=== PATIENT | female | born 1945 | race Caucasian/White ===

== ENCOUNTER → 2018-12-29 08:12 | Outpatient (CLI) | payer MEDICARE, BC ==
[2012-01-13 17:38] VITALS: BMI 22.3
== END | disposition home or self-care (01) ==
LOC: D.CT 08:12
DX: I71.4 Abdominal aortic aneurysm, without rupture (principal)

== ENCOUNTER 2019-01-21 00:42 | Emergency (ER) | payer MEDICARE, BC ==
[~2019-01-21] VITALS: Ht 157.5 cm; Wt 66.4 kg
[2019-01-21 00:50] VITALS: Ht 157.5 cm; Wt 66.4 kg
[2019-01-21] MEDS ORDERED: ATIVAN0.5 MG PO (00:53)
[2019-01-21] MEDS ORDERED: MACROBID100 MG PO (00:53)
[2019-01-21] MEDS ORDERED: CELEXA10 MG PO (00:53)
[2019-01-21] MEDS ORDERED: SOMA350 MG PO (00:54)
[2019-01-21] MEDS ORDERED: PHENAZOPYRIDIN100 MG PO (00:54)
[2019-01-21] MEDS ORDERED: RANITIDINE HCL150 M1 PO (00:54)
[2019-01-21 01:52] LABS: APTT 28.9 SECONDS (22.8-39.4); INR 1.05 (0.85-1.17); PROTIME 13.2 SECONDS (11.6-15.0)
[2019-01-21 02:02] LABS: ALBUMIN 3.5 g/dL (3.4-5.0); ALKALINE PHOSPHATASE 142 U/L (46-116); ALT (SGPT) 38 U/L (10-68); CALC OSMOLALITY 286 mosm/kg (275-300); CALCIUM 8.2 mg/dL (8.5-10.1); CARBON DIOXIDE 22.8 mmol/L (21.0-32.0); CHLORIDE - SERUM 106 mmol/L (98-107); POTASSIUM - SERUM 3.3 mmol/L (3.5-5.1); SODIUM 143 mmol/L (136-145); UREA NITROGEN 13 mg/dL (7-18); eGFR NON AFRICAN AMERICAN 58 mL/min (90-120)
[2019-01-21 02:04] LABS: GLUCOSE 140 mg/dL (74-106)
[2019-01-21 02:08] LABS: BASOPHILS 0 % (0-2); EOSINOPHILS 0.6 % (0-7); HEMATOCRIT 35.1 % (36.0-48.0); HEMOGLOBIN 11.9 g/dL (12-16); IMMATURE GRANULOCYTES 0.1 % (0-5); LYMPHOCYTES 5.5 % (15-50); MCH 30.1 pg (26.0-34.0); MCHC 33.9 g/dL (31.0-37.0); MCV 88.6 fL (80.0-100.0); MEAN PLATELET VOLUME 9.7 fL (7.4-10.4); MONOCYTES 5.7 % (2-11); NEUTROPHILS 88.1 % (40-80); RBC 3.96 10x6/uL (4.00-5.40); RDW 13.3 % (11.5-14.5); WBC 8.4 10x3/uL (4.8-10.8)
[2019-01-21 02:09] LABS: CKMB 0.7 U/L (0.0-3.6); CREATINE KINASE 52 UL (21-215); MAGNESIUM - SERUM 1.7 mg/dL (1.8-2.4)
[2019-01-21 02:10] LABS: TROPONIN-I < 0.017 ng/mL (0.000-0.060)
[2019-01-21 02:33] LABS: PLATELET COUNT 214 10x3/uL (130-400)
[2019-01-21 03:31] VITALS: BP 100/50
== END 2019-01-21 03:15 | disposition home or self-care (01) ==
LOC: D.ER 00:42
PROVIDERS: Family Medicine
DX: R07.89 Other chest pain (principal)

== ENCOUNTER → 2019-02-09 10:19 | Outpatient (CLI) | payer MEDICARE, BC ==
[2019-01-21 00:50] VITALS: BMI 26.7
--- NOTE | ~2019-02-09 | ST ---
PATIENT:CAT ROSARIO MEDICAL RECORD: [id number] SEX: F LOCATION:[facility] ORDER #: ADMISSION DATE: 02/09/19 AGE OF PATIENT: 74 REFERRING PHYSICIAN: INTERPRETING PHYSICIAN: NICK WEAVER MD DATE OF SERVICE: 02/09/2019 PROCEDURE: Nuclear stress test. INDICATION: Angina and coronary artery disease. PROCEDURE IN DETAIL: The patient was exercised on standard Lexiscan protocol with 33 mCi of sestamibi injected at peak stress, 11 mCi were used previously for rest images. FINDINGS: Gated SPECT reveals preserved ejection fraction at 66% with good wall motioning and thickening and brightening throughout all segments. SPECT imaging Cardiolite was used as myocardial perfusion agent. There is reversibility anteriorly, this includes the basal, mid apical, and anterior segments. The degree of reversibility is mild to moderate. The amount of myocardium involved is moderate. OVERALL IMPRESSION: 1. This is an abnormal nuclear stress test. Reversible ischemia anteriorly. 2. Gated SPECT reveals preserved ejection fraction greater than 60% in this patient with ongoing symptomatology. The current scan does suggest the presence of hemodynamically significant coronary artery disease. We will proceed with coronary angiography as followup study. TRANSINT:[id number] Voice Confirmation ID: [id number] DOCUMENT ID: [id number] NICK WEAVER MD CC: [id number] DICTATION DATE: 02/10/19 1217 UTILITY SPECIALIST: 02/11/19 0356 DEP CLI 02/09/[address] [address]
[~2019-02-09 10:19] MED LIST: ATIVAN0.5 MG PO; CELEXA10 MG PO; MACROBID100 MG PO; PHENAZOPYRIDIN100 MG PO; RANITIDINE HCL150 M1 PO; SOMA350 MG PO
== END | disposition home or self-care (01) ==
LOC: D.HCCARDIO 10:19
PROVIDERS: ATTEND Internal Medicine Interventional Cardiology
DX: I25.119 Atherosclerotic heart disease of native coronary artery with unspecified angina pectoris (principal)

== ENCOUNTER 2019-02-22 11:55 | Outpatient (CLI) | payer MEDICARE, BC ==
[~2019-02-22] VITALS: Ht 157.5 cm; Wt 59.1 kg
--- NOTE | ~2019-02-22 | HEMODYNAMI ---
PATIENT:CAT ROSARIO MEDICAL RECORD: [id number] : 45 LOCATION:[facility] ADMISSION DATE: 02/22/19 Generatedon:02/22/201914:24 Patient name: CAT ROSARIO Patient #: [id number] SSN: : Date of study: 02/22/2019 Page: Of Hemodynamic Procedure Report Patient Data Patient Demographics Procedure consent was obtained First Name: CAT Gender: Female Last Name: MARLENE : 1945 [facility] Initial: LARA Age: 74 year(s) Patient #: [id number] Race: Unknown Additional ID: [id number] Contact details [address]: [address] [place] [address] State: [place] City: [place] Zip code: [address] Past Medical History Allergies Allergen Reaction Date Comments Reported Other allergy 02/22/2019 CODEINE, IODINE, MACROBID, PCN Admission Admission Data Admission Date: 02/22/2019 Admission Time: 11:55 Height (in.): 63 BSA: 1.59 (m2) Height (cm.): 160.02 BMI: 22.32 (kg/m2) Weight (lbs.): 126 Weight (kg.): 57.15 Lab Results Lab Result Date: 02/22/2019 Lab Result Time: 0:00 Biochemistry Name Units Result Min Max BUN mg/dl 15 --(--*-)-- 7 18 Creatinine mg/dl 0.7 --(*---)-- 0.6 1.3 CBC Name Units Result Min Max Hematocrit % 36.9 *-(----)-- 42 54 Hemoglobin g/dl 12.8 -*(----)-- 13.5 17.5 Procedure Procedure Types Cath Procedure Diagnostic Procedure LHC LHC w/Coronaries Sedation Charges Moderate Sedation up to 30 minutes Procedure Description Procedure Date Procedure Date: 02/22/2019 Procedure Start Time: 14:01 Procedure End Time: 14:22 Procedure Staff Name Function Gui Lawrence MD Performing Physician Ruthie Vidal RT Monitor Zeyad Lewis RT Scrub Kenya Harrison RN Nurse Procedure Data Cath Procedure Fluoroscopy Diagnostic fluoroscopy Total fluoroscopy Time: 1.9 time: 1.9 min min Diagnostic fluoroscopy Total fluoroscopy dose: 335 dose: 335 mGy mGy Contrast Material Contrast Material Type Amount (ml) Isovue 300 105 Entry Location Entry Primary Successful Side Size Upsize Upsize Entry Closure Succes sful Closure Location (Fr) 1 (Fr) 2 (Fr) Remarks Device Remarks Femoral Right 5 Fr Exoseal artery Estimated blood loss: 5 ml Diagnostic catheters Device Type Used For End Catheter Placement MULTIPACK JL 4.0 5Fr Procedure catheter MULTIPACK 3DRC 5Fr Procedure catheter MULTIPACK Pigtail 5 Fr Procedure catheter Procedure Complications No complications Procedure Medications Medication Administration Route Dosage 0.9% NaCl I.V. 100 ml/hr Oxygen etCO2 Nasal cannula 2 l/min Lidocaine 2% added to field 20 Heparin Flush Bag added to field 2 bags (1000units/500ml NS) Radial Cocktail added to field 1 syringe (Verapomil 2mg/Nitro 400mcg/Heparin 1500units) Versed I.V. 2 mg Fentanyl I.V. 50 mcg Versed I.V. 2 mg Fentanyl I.V. 50 mcg Hemodynamics Rest BSA: 1.59 (m2) HGB: 12.8 (g/dl) O2 Consumption: Estimated: 146.99 (ml/min) O2 Co nsumption indexed: Estimated:92.45 (ml/min/m) Heart Rate: 73 (bpm) Pressure Samples Time Site Value (mmHg) Purpose Heart Use Rate(bpm) 14:07 LV 162/-2,21 EDP 74 14:09 AO 153/73(108) Pullback 79 14:09 LV 155/2,23 Pullback 79 Gradients Valve Time Site 1 Site 2 Mean SEP/DFP Peak To Heart Use (mmHg) (sec/min) Peak Rate (mmHg) (bpm) Aortic 14:09 LV AO 6 16 2 79 155/2,23 153/73(108) Calculations Valve P-P Mean Valve Index Valve Source Name Gradient Area Flow (cm2) Aortic 2 6 2 6 Snapshots Pre Cath Intra NCS Post Cath Vital Signs Time Heart Resp SPO2 etCO2 NIBP (mmHg) Rhythm Pain Sedation Rate (ipm) (%) (mmHg) Status Level (bpm) 13:45:43 69 12 100 34.1 173/80(113) NSR 0 (11) 10(A) , No pain 13:50:03 64 11 97 34.8 148/77(117) NSR 0 (11) 10(A) , No pain 13:54:24 69 12 98 34.8 149/74(125) NSR 0 (11) 10(A) , No pain 13:58:42 66 13 97 12.6 134/67(102) NSR 0 (11) 9(A) , No pain 14:02:56 65 16 97 40.7 140/72(95) NSR 0 (11) 9(A) , No pain 14:07:12 75 15 97 39.2 144/73(116) NSR 0 (11) 9(A) , No pain 14:11:30 75 14 98 37.8 134/73(103) NSR 0 (11) 9(A) , No pain 14:15:44 66 14 98 31.1 133/70(110) NSR 0 (11) 9(A) , No pain 14:19:56 75 10 98 22.9 144/77(120) NSR 0 (11) 10(A) , No pain Medications Time Medication Route Dose Verified Delivered Reason Notes E ffectiveness by by 13:46:30 0.9% NaCl I.V. 100 Gui Kenya used for ml/hr Howard Harrison costume director 13:46:37 Oxygen etCO2 2 l/min Gui Kenya used for Nasal Howard Harrison procedure cannula RN 13:46:42 Lidocaine 2% added 20ml Gui Gui for local to vial Howard Lawrence MD anesthetic field 13:46:49 Heparin Flush added 2 bags Gui Gui used for Bag to Howard Lawrence MD procedure (1000units/500ml field NS) 13:46:55 Radial Cocktail added 1 Gui Gui used for (Verapomil to syringe Howard Lawrence MD procedure 2mg/Nitro field 400mcg/Heparin 1500units) 13:48:50 Versed I.V. 2 mg Gui Kenya for Howard Harrison sedation RN 13:48:57 Fentanyl I.V. 50 mcg Gui Kenya for Howard Harriosn sedation RN 13:54:47 Versed I.V. 2 mg Gui Kenya for Howard Harrison sedation RN 13:54:51 Fentanyl I.V. 50 mcg Gui Kenya for Howard Harrison sedation home energy consultant supervisor Log Time Note 13:25:50 Zeyad Lewis RT(R) sent for patient. Start room use. 13:30:51 Diagnostic Cath status Elective 13:30:52 Signed procedure consent form obtained from patient. 13:30:53 Time tracking: Regular hours (M-F 7:00 - 5:00) 13:30:56 Plan of Care:Hemodynamics will remain stable., Cardiac rhythm will remain stable., Comfort level will be maintained., Respiratory function will remain adequate., Patient/ family verbilizes understanding of procedure., Procedure tolerated without complication., Recovers from procedure without complications.. 13:32:04 H&P Date Dictated: 02/02/2019 Within 30 days and on chart., H&P Addendum completed by physician on day of procedure. (MUST COMPLETE FOR ALL OUTPATIENTS). 13:32:32 Patient allergic to Other allergyCODEINE, IODINE, MACROBID, PCN 13:43:38 Patient received from Pre/Post Procedure Room to CCL 1 Alert and oriented. Tansferred to table in Supine position. 13:43:39 Warm blankets applied, and omar hugger turned on for patient comfort. 13:43:40 Correct patient and procedure confirmed by team. 13:43:41 ECG and BP/O2 sat monitors applied to patient. 13:43:41 Vital chart was started 13:43:42 Baseline sample Acquired. 13:43:47 Rhythm: sinus rhythm 13:44:54 Full Disclosure recording started 13:44:54 Pre-procedure instructions explained to patient. 13:44:55 Pre-op teaching completed and patient verbalized understanding. 13:44:57 Family in patients room. 13:44:58 Patient NPO since Midnight. 13:45:01 Is the patient allergic to Iodine/contrast media? Yes. 13:45:02 Was the patient premedicated? Yes 13:45:04 Is patient on blood thinner?No 13:45:05 Patient diabetic? No. 13:45:09 Previous problem with sedation/anesthesia? No ? 13:45:12 Snore? Yes 13:45:13 Sleep apnea? No 13:46:30 0.9% NaCl 100 ml/hr I.V. was administered by Kenya Harrison RN; used for procedure; 13:46:37 Oxygen 2 l/min etCO2 Nasal cannula was administered by Kenya Harrison RN; used for procedure; 13:46:42 Lidocaine 2% 20ml vial added to field was administered by Gui Lawrence MD; for local anesthetic; 13:46:49 Heparin Flush Bag (1000units/500ml NS) 2 bags added to field was administered by Gui Lawrence MD; used for procedure; 13:46:55 Radial Cocktail (Verapomil 2mg/Nitro 400mcg/Heparin 1500units) 1 syringe added to field was administered by Gui Lawrence MD; used for procedure; 13:46:59 Sleep apnea? No 13:47:01 Deviated septum? No 13:47:02 Opens mouth fully? Yes 13:47:02 Sticks out tongue? Yes 13:47:04 Airway obstruction? No ? 13:47:08 Dentures? Yes IN TIGHT 13:47:11 Pre procedure: right dorsailis pedis pulse 2+ Normal; easily identifiable; not easily obliterated 13:47:29 Patient pain scale 0/10 ?. 13:47:35 IV patent on arrival in left hand with 0.9% NaCl at [facility]. 13:48:08 Lab Result : BUN 15 mg/dl 13:48:08 Lab Result : Creatinine 0.7 mg/dl 13:48:08 Lab Result : Hemoglobin 12.8 g/dl 13:48:08 Lab Result : Hematocrit 36.9 % 13:48:11 Lab results completed and on chart. 13:48:14 Right groin area was prepped with chlora-prep and draped in sterile fashion 13:48:15 Alarms reviewed by R. N. 13:48:18 Sharps counted by scrub and verified by R.N. 13:48:20 --------ALL STOP TIME OUT------ 13:48:20 Final Timeout: patient, procedure, and site verified with staff and physician. All members of the team are in agreement. 13:48:22 Right groin site verified by team. 13:48:24 Maximum allowable Isovue 300 dose 300ml. Physician notified. (300ml for normal creatinines. For patients with creatinine of 1.7 or higher multiply weight(kg) x 5 divided by creatinine.) 13:48:29 Fire Safety Assessment: A--An alcohol-based skin anteseptic being used preoperatively., C--Open oxygen or nitrous oxide is being used., D--An ESU, laser, or fiber-optic light is being used. 13:48:34 Sedation plan: IV Moderate Sedation Medication:Versed, Fentanyl 13:48:50 Versed 2 mg I.V. was administered by Kenya Harrison RN; for sedation; 13:48:57 Fentanyl 50 mcg I.V. was administered by Kenya Harrison RN; for sedation; 13:51:33 Use device set Femoral Dx 13:51:35 ACIST Syringe (86206) opened to sterile field. 13:51:36 Bag Decanter (2002S) opened to sterile field. 13:51:36 ACIST Hand Control (00842) opened to sterile field. 13:51:37 ACIST Manifold (76879) opened to sterile field. 13:51:39 Tegaderm 4 x 4 (1626W) opened to sterile field. 13:51:46 Medline Cath Pack ([id number]) opened to sterile field. 13:51:47 DIAGNOSTIC WIRE .035 260cm J wire (039593) opened to sterile field. 13:51:49 DIAGNOSTIC Multipack 5Fr catheter set (JY3323) opened to sterile field. 13:51:50 SHEATH 5FR Orient (ZIR268) opened to sterile field. 13:52:19 Patient Height : 63 inches 13:52:22 Patient Weight : 126 lbs 13:54:47 Versed 2 mg I.V. was administered by Kenya Harrison RN; for sedation; 13:54:51 Fentanyl 50 mcg I.V. was administered by Kenya Harrison RN; for sedation; 13:56:16 Zero performed for pressure channel P1 14:00:38 Procedure started. 14:01:26 Local anesthetic to right femoral artery with Lidocaine 2% by Gui Lawrence MD.INITIAL ACCESS ONLY 14:02:17 A 5 Fr sheath was inserted into the Right Femoral artery 14:02:26 Zero performed for pressure channel P1 14:02:34 Zero performed for pressure channel P1 14:02:58 A MULTIPACK JL 4.0 5Fr catheter was advanced over the wire and used for Procedure. 14:04:20 LCA angiography performed. 14:04:25 Catheter exchanged over wire. 14:05:11 A MULTIPACK 3DRC 5Fr catheter was advanced over the wire and used for Procedure. 14:06:08 RCA angiography performed. 14:06:10 Catheter exchanged over wire. 14:06:56 A MULTIPACK Pigtail 5 Fr catheter was advanced over the wire and used for Procedure. 14:07:18 LV gram done using GUTIERREZ 14::28 Injector settings: Ml/sec: 10, Volume: 20, 14:07:46 LV hemodynamics recorded. 14:08:04 EF : 55 % 14:10:07 Aortic Root visualized 14:19:35 Catheter removed. 14:19:39 EXOSEAL 5Fr (EX500) opened to sterile field. 14:20:13 Sheath removed intact; hemostasis achieved with Exoseal to the Right Femoral artery. 14:20:32 Procedure ended.(Physican Out) 14:20:56 Fluoroscopy time 01.90 minutes. 14:21:00 Fluoroscopy dose: 335 mGy 14:21:00 Flurop Dose total: 335 14:21:05 Contrast amount:Isovue 300 105ml. 14:21:07 Sharps counted by scrub and verified by R.N. 14:21:11 Post-op/insertion site Right Femoral artery dressed using a 4 x 4 and Tegaderm. 14:21:13 Post-procedure physical assessment completed. ASA score P 2 - A patient with mild systemic disease as per Gui Lawrence MD. 14:21:17 Post procedure rhythm: sinus rhythm 14:21:20 Estimated blood loss: 5 ml 14:21:21 Post procedure instruction explained to patient.Patient verbalizes understanding. 14:21:22 Patient needs reinforcement of post procedure teaching. 14:22:16 Procedure type changed to Cath procedure, Diagnostic procedure, LHC, LHC w/Coronaries, Sedation Charges, Moderate Sedation up to 30 minutes 14:22:36 Procedure and supply charges have been captured, reviewed, submitted and are correct. 14:22:39 Procedure Complication : No complications 14:22:41 Vital chart was stopped 14:22:41 See physician's report for complete and final results. 14:22:43 Report given to Pre/Post Procedure Room. 14::46 Patient transfered to Pre/Post Procedure Room with Bed. 14:22:48 Procedure ended. 14:22:48 Full Disclosure recording stopped 14:22:51 End room use (Document Last) Device Usage Item Name Manufacture Quantity Catalog Hospital Part Current Minimal L ot# / Number Charge Number Stock Stock Serial# Code ACANDRES Acist 1 13944 330824 732263 800620 20 Syringe Medical (12306) Systems Inc Bag Microtek 1 2001S 937220 31615 885471 5 Decanter Medical Inc. (2001S) ACIST Hand Acist 1 82533 271372 476173 519137 5 Control Medical (85421) Systems Inc ACIST Acist 1 31501 229590 505296 068548 5 Manifold Medical (06269) Systems Inc Tegaderm 4 3M 1 1626W 744904 923708 291115 5 x 4 (1626W) Medline Medline 1 [id number] 663484 52375 928720 5 Cath Pack ([id number]) DIAGNOSTIC [facility] [place] 1 212779 759238 718073 132923 30 WIRE .035 260cm J wire (109256) DIAGNOSTIC Cardinal 1 PV3059 740366 48046 958165 30 Multipack Health 5Fr catheter set (NA6909) SHEATH 5FR Terumo 1 CFY705 455267 678120 533980 5 Orient (SLW885) MULTIPACK Cardinal 1 682506 5 JL 4.0 5Fr Health catheter MULTIPACK Cardinal 1 696042 5 3DRC 5Fr Health catheter MULTIPACK Cardinal 1 648298 5 Pigtail 5 Health Fr catheter EXOSEAL 5Fr Cardinal 1 EX500 383076 572465 263646 10 (EX500) Health Signature Audit [place] Stage Time Signature Unsigned Intra-Procedure 02/22/2019 Ruthie Vidal 2:24:20 PM RT(R) Signatures Monitor : Ruthie Vidal Signature : RT Date : Time : [place] [address]
[2019-02-22 12:46] VITALS: BP 146/64; BMI 23.8
[2019-02-22 12:50] LABS: BASOPHILS 0 % (0-2); EOSINOPHILS 0 % (0-7); HEMATOCRIT 36.9 % (36.0-48.0); HEMOGLOBIN 12.8 g/dL (12-16); IMMATURE GRANULOCYTES 0.2 % (0-5); LYMPHOCYTES 10.7 % (15-50); MCH 30.3 pg (26.0-34.0); MCHC 34.7 g/dL (31.0-37.0); MCV 87.2 fL (80.0-100.0); MEAN PLATELET VOLUME 9.6 fL (7.4-10.4); MONOCYTES 0.6 % (2-11); NEUTROPHILS 88.5 % (40-80); PLATELET COUNT 210 10x3/uL (130-400); RBC 4.23 10x6/uL (4.00-5.40); RDW 13.5 % (11.5-14.5); WBC 6.3 10x3/uL (4.8-10.8)
[2019-02-22 12:58] LABS: CALC OSMOLALITY 280 mosm/kg (275-300); CALCIUM 9.1 mg/dL (8.5-10.1); CARBON DIOXIDE 25.2 mmol/L (21.0-32.0); CHLORIDE - SERUM 103 mmol/L (98-107); CREATININE - SERUM 0.7 mg/dL (0.6-1.3); GLUCOSE 128 mg/dL (74-106); POTASSIUM - SERUM 3.6 mmol/L (3.5-5.1); SODIUM 139 mmol/L (136-145); UREA NITROGEN 15 mg/dL (7-18); eGFR NON AFRICAN AMERICAN 87 mL/min (90-120)
--- NOTE | 2019-02-22 14:35 | NUR ---
PT ARRIVED BY BED. PLACED ON MONITORS. FAMILY AT BEDSIDE.
--- NOTE | 2019-02-22 14:50 | NUR ---
DR. DAUGHERTY AT BEDSIDE. UPDATED PT NO PLAN OF CARE. CALLED AND SPOKE WITH JERMAIN AT DR. MELENDEZ'S OFFICE REGARDING CONSULT. THEY WILL ROUND AND SPEAK WITH PT AND PT'S FAMILY.
--- NOTE | 2019-02-22 15:30 | NUR ---
HEAD OF BED INC TO 30 DEGREES. RIGHT GROIN DRESSING C/D/I. NO S/S OF HEMATOMA NOTED. VSS. FAMILY AT BEDSIDE. PT SET UP WITH SANDWICH TRAY AND DRINK. NO OTHER NEEDS AT THIS TIME. PT HAS BARIHUGGER BLANKET ON FOR COMFORT.
--- NOTE | 2019-02-22 16:00 | NUR ---
RIGHT GROIN DRESSING C/D/I. NO S/S OF HEMATOMA NOTED. VSS.
--- NOTE | 2019-02-22 16:21 | NUR ---
DR. MELENDEZ AT BEDSIDE. SPEAKING WITH PT AND PT'S FAMILY REGARDING PLAN OF CARE.
[2019-02-22] MEDS ORDERED: BAYER CHEWABLE81 MG PO (16:24)
[2019-02-22] MEDS ORDERED: LOPRESSOR25 MG PO (16:24)
[2019-02-22 16:36] VITALS: Ht 157.5 cm; Wt 59.1 kg
[2019-02-22] MEDS ORDERED: LIPITOR10 MG PO (16:36)
--- NOTE | 2019-02-22 16:45 | NUR ---
DISCUSSED DISCHARGE INSTRUCTIONS WITH PT. SHE VOICED UNDERSTANDING. MEDICATIONS CALLED IN TO [facility] PER JERMAIN DELUCA RN. PT AMBULATED TO RESTROOM. VOIDED WITHOUT DIFFICULTY. STEADY GAIT NOTED.
--- NOTE | 2019-02-22 16:50 | NUR ---
PT TAKEN TO VEHICLE BY WHEELCHAIR. NO S/S OF DISTRESS NOTED. ALL PAPERWORK AND DISCHARGE INSTRUCTIONS IN HAND.
== END 2019-02-22 16:30 | disposition home or self-care (01) ==
LOC: D.CATH 11:55
PROVIDERS: ATTEND Internal Medicine Cardiovascular Disease
DX: I25.119 Atherosclerotic heart disease of native coronary artery with unspecified angina pectoris (principal); Z01.812 Encounter for preprocedural laboratory examination

== ENCOUNTER 2019-02-27 08:00 | Inpatient (IN) | payer MEDICARE, BC ==
[~2019-02-27 08:00] MED LIST changes: +BAYER CHEWABLE81 MG PO; +LIPITOR10 MG PO; +LOPRESSOR25 MG PO
[2019-02-27 13:06] LABS: BASOPHILS 0.1 % (0-2); EOSINOPHILS 0.4 % (0-7); HEMATOCRIT 38.3 % (36.0-48.0); HEMOGLOBIN 13.3 g/dL (12-16); IMMATURE GRANULOCYTES 0.3 % (0-5); LYMPHOCYTES 32.2 % (15-50); MCH 30.4 pg (26.0-34.0); MCHC 34.7 g/dL (31.0-37.0); MCV 87.6 fL (80.0-100.0); MEAN PLATELET VOLUME 9.6 fL (7.4-10.4); MONOCYTES 6.8 % (2-11); NEUTROPHILS 60.2 % (40-80); PLATELET COUNT 221 10x3/uL (130-400); RBC 4.37 10x6/uL (4.00-5.40); RDW 13.5 % (11.5-14.5); WBC 7.5 10x3/uL (4.8-10.8)
[2019-02-27 13:17] LABS: APPEARANCE CLEAR (CLEAR); BILIRUBIN NEGATIVE (NEGATIVE); COLOR YELLOW (YELLOW); GLUCOSE NEGATIVE (NEGATIVE); KETONE NEGATIVE (NEGATIVE); NITRITE NEGATIVE (NEGATIVE); PROTEIN NEGATIVE (NEGATIVE); UROBILINOGEN NORMAL (NORMAL)
[2019-02-27 13:18] LABS: BACTERIA MODERATE /hpf (NONE SEEN); EPITHELIAL CELLS 0-5 /hpf (0-5)
[2019-02-27 13:19] LABS: GRANULAR CAST RARE /lpf (NONE SEEN)
[2019-02-27 13:21] LABS: APTT 31.8 SECONDS (22.8-39.4); INR 1.06 (0.85-1.17); PROTIME 13.3 SECONDS (11.6-15.0)
[2019-02-27 13:51] LABS: ALBUMIN 3.8 g/dL (3.4-5.0); ALKALINE PHOSPHATASE 130 U/L (46-116); ALT (SGPT) 18 U/L (10-68); BILIRUBIN - TOTAL 0.53 mg/dL (0.2-1.3); CALC OSMOLALITY 281 mosm/kg (275-300); CALCIUM 8.8 mg/dL (8.5-10.1); CARBON DIOXIDE 30.9 mmol/L (21.0-32.0); CHLORIDE - SERUM 103 mmol/L (98-107); CHOLESTEROL, TOTAL 197 mg/dL (0-200); CREATININE - SERUM 0.7 mg/dL (0.6-1.3); GLUCOSE 91 mg/dL (74-106); PHOSPHOROUS 3.6 mg/dL (2.5-4.9); POTASSIUM - SERUM 3.8 mmol/L (3.5-5.1); PROTEIN - SERUM 7.3 g/dL (6.4-8.2); SODIUM 141 mmol/L (136-145); T4 THYROXIN - FREE 0.88 ng/dL (0.76-1.46); THYROID STIMULATING HORMONE 1.95 uIU/mL (0.36-3.74); UREA NITROGEN 14 mg/dL (7-18); URIC ACID 4.1 mg/dL (2.6-7.2); eGFR NON AFRICAN AMERICAN 87 mL/min (90-120)
[2019-03-02] VITALS (45 sets, daily range): BP systolic 93–138; BP diastolic 47–70; BMI 23.8; BMI 24.4
--- NOTE | 2019-03-02 14:44 | NUR ---
PT ARRIVED TO ROOM APPROX 1335 SEDATED FROM SURGERY ETT 8.0 21 AT THE LIP PLACED ON VENT BY RT, R IJ CVL DRESSING CDI WITH [id number]/HR ELAN 0.2MCG/KG/MIN OR 3.5ML/HR, ZINACEF INITATED 11.4ML/HR, AMIODARONE 1MG/MIN FOR 6 HOURS OR 10ML/HR, DOPAMINE 2MCG/KG/MIN OR 4.4ML/HR, KCL TREATED WITH 20MEQ AFTER ABG PER DR MELENDEZ, L AC PIV, R RADIAL A LINE ZEROED, GOOD WAVEFORM, WRIST PROTECTOR IN PLACE, MIDSTERNAL DRESSING CDI, SUBSTERNAL CTX3 WITH 2 Y'D TOGETHER NO AIR LEAK 20CM SUCTION BLOODY DRAINAGE, SUBSTERNAL JACQUELINE COMPRESSED WITH BLOODY DRAINAGE, CRITICORE DRAINING YELLOW URINE, RLE HARVEST SITES CDI WITH COBAN FROM GROIN TO ANKLE, FAMILY UPDATED BY DR MELENDEZ AND IN ROOM, SECURITY CODE SET UP, WILL CONTINUE TO MONITOR 1:1
--- NOTE | 2019-03-02 16:57 | NUR ---
ABGS CALLED TO DR MELENDEZ, BASE EXCESS, CALCIUM AND POTASSIUM TREATED PER PROTOCOL ORDERS, KCL TREATED FROM HANGING BAG
--- NOTE | 2019-03-02 17:27 | NUR ---
ABG REPEATED PER DR MELENDEZ AND NOTIFIED HIM OF RESULTS
--- NOTE | 2019-03-02 17:33 | NUR ---
ORDERS FROM DR MELENDEZ TO CHANGE VENT RATE TO 14 AND CHECK ABG IN ONE HOUR IF AWAKE
--- NOTE | 2019-03-02 18:35 | NUR ---
UPDATED DR MELENDEZ ON PTS VS, OUTPUTS, ETC AND THAT PT IS STILL EASILY AWAKENED AND FOLLOWS COMMANDS BUT CONTINUES TO RIDE THE VENTILATOR RATE OF 14 AND IS NOT BREATHING OVER, WILL GET ABGS IN ANOTHER HOUR IF AWAKE, RT AWARE
--- NOTE | 2019-03-02 19:20 | NUR ---
REPORT REC'D AND CARE ASSUMED, REC'D PT ON VENT VIA 8.0 ETT TAPED AT 21CM LIPLINE, SEE FLOWSHEET FOR VENT SETTINGS, RIJDL DRSG CDI WITH MANNIFOLD TO 3 PRONG EXTENSION, PLASMALYTE @ 100CC/HR, DOPAMINE @ 2MCG/KG/MIN OR 4.4CC/HR, NEOSYNEPHRINE @ 0.2 MCG/KG/MIN OR 3.5CC/HR, AND CORDARONE @ 1MG/MIN OR 10CC/HR, INSULIN AND NITROGLYCERIN ON HOLD, LEFT A/C PIV PATENT WITH ZINACEF @ 11.4CC/HR, MIDSTERNAL DRSG CDI, RIGHT RADIAL BERNY LEVELED ZEROED AND FLUSHED WITH RETURN OF APPROPRIATE WAVEFORM, MEDISTINAL CT'S AND JACQUELINE DRAIN TO UPPER ABD, DRSG CDI, SANGUINOUS DRAINAGE PRESENT, CRITICORE MARKS PATENT DRAINING CLEAR YELLOW URINE, COBAN TO RIGHT LEG CDI, TIM AND SCD TO LEFT LEG, PPP, PT AWAKENS TO VERBAL STIMULI, SLOW TO FOLLOW COMMANDS THEN DRIFTS BACK TO SLEEP, BILAT SOFT WRIST RESTRAINTS INTACT, 1:[address].
--- NOTE | 2019-03-02 19:25 | NUR ---
RT AT BS FOR ABG, RESULT CALLED TO DR. MELENDEZ AND ORDERS REC'D TO ATTEMPT TO WEAN VENT TOLERATED.
--- NOTE | 2019-03-02 19:30 | NUR ---
RATE ON VENT DECREASED TO 10 PER RT
--- NOTE | 2019-03-02 20:00 | NUR ---
FAMILY AT BS TO SEE PT, UPDATE PROVIDED AND QUESTIONS ANSWERED, PT AWAKE WHILE FAMILY IN ROOM.
--- NOTE | 2019-03-02 21:13 | NUR ---
EVENING MEDS GIVEN ORDERED, PO MEDS HELD AT THIS TIME, PT REMAINS ON VENT, RESTING EYES CLOSED, RESP 13-15, BP STABLE, ATTEMPTING TO WEAN GTTS TOLERATED.
--- NOTE | 2019-03-02 22:00 | NUR ---
PT RESTING ON VENT, VSS, FSBS 173, WILL CONT TO MONITOR FOR CHANGES.
--- NOTE | 2019-03-02 22:20 | NUR ---
RATE DECREASED TO 8 PER RT, ORAL CARE PROVIDED AND LIP MOISTURIZER APPLIED, PT MORE AWAKE AT THIS TIME
--- NOTE | 2019-03-02 22:50 | NUR ---
PT PLACED ON CPAP PER RT. RESP RATE 20, O2 SAT 97%, BP STABLE, WILL MONITOR CLOSELY FOR CHANGES.
[2019-03-03] VITALS (65 sets, daily range): BP systolic 98–143; BP diastolic 42–76; BMI 25.6
--- NOTE | 2019-03-03 00:15 | NUR ---
PT EXTUBATED TO 4LITERS NC, ORAL CARE PROVIDED, BILAT SOFT WRIST RESTRAINTS REMOVED AND PT INSTRUCTED TO NOT PULL AT LINES OR TUBES, PT NODS HEAD IN UNDERSTANDING.
--- NOTE | 2019-03-03 00:30 | NUR ---
HEART PILLOW PROVIDED AND INSTRUCTIONS PROVIDED ON PROPER SPLINTING TECHNIQUES, PT DENIES NAUSEA, A FEW ICE CHIPS GIVEN AT THIS TIME.
--- NOTE | 2019-03-03 01:15 | NUR ---
PERCOCET 5 GIVEN PO FOR DISCOMFORT, PT REPOSITIONED IN BED FOR COMFORT, ICE CHIPS PROVIDED, WILL MONITOR CLOSELY FOR CHANGES.
--- NOTE | 2019-03-03 02:45 | NUR ---
SBP 140'S SUSTAINED, NITROGLYCERIN STARTED @ 2CC/HR OR 6.67MCG/MIN, WILL TITRATE TO KEEP SBP LESS THAN 140
--- NOTE | 2019-03-03 03:15 | NUR ---
REASSESSMENT COMPLETED, SIPS OF WATER PROVIDED ON REQUEST, PT DENIES NAUSEA, RATING PAIN "3" ON 0-10 PAIN SCALE, PT DENIES FURTHER NEEDS, WILL CONTINUE TO MONITOR FOR CHANGES.
--- NOTE | 2019-03-03 03:55 | NUR ---
PT ASSISTED X 2 TO DANGLE AT BS, TOLERATED MOVING WELL, BACK WASHED AND LINES STRAIGHTENED WHILE PT ON SIDE OF BED.
--- NOTE | 2019-03-03 04:10 | NUR ---
PT ASSISTED BACK IN BED AND REPOSITIONED UP FOR COMFORT, 50CC NOTED IN POSTERIOR CHEST TUBE, ICE WATER PROVIDED AND CALL LIGHT IN REACH.
--- NOTE | 2019-03-03 04:30 | NUR ---
RADIOLOGY @ BS FOR AM CXR.
--- NOTE | 2019-03-03 05:55 | NUR ---
AM LAB DRAWN AND SENT TO LAB
[2019-03-03 06:34] LABS: HEMATOCRIT 35.9 % (36.0-48.0); MCH 28.9 pg (26.0-34.0); MCHC 33.4 g/dL (31.0-37.0); MCV 86.5 fL (80.0-100.0); MEAN PLATELET VOLUME 9.9 fL (7.4-10.4); RBC 4.15 10x6/uL (4.00-5.40); RDW 16.3 % (11.5-14.5); WBC 14.8 10x3/uL (4.8-10.8)
[2019-03-03 06:40] LABS: ALBUMIN 2.7 g/dL (3.4-5.0); ANION GAP 13.7 mmol/L (8-16); BILIRUBIN - TOTAL 0.6 mg/dL (0.2-1.3); CALCIUM 7.6 mg/dL (8.5-10.1); CARBON DIOXIDE 27.5 mmol/L (21.0-32.0); POTASSIUM - SERUM 4.2 mmol/L (3.5-5.1); PROTEIN - SERUM 5.4 g/dL (6.4-8.2)
--- NOTE | 2019-03-03 07:30 | NUR ---
SHIFT REPORT RECEIVED. TRANSFERRED PT TO CHAIR. RATES PAIN 8/10 AFTER TRANSFERR. ON 2L O2 VIA NC. MIDSTERNAL DRESSING CDI. SUBSTERNAL DRESSING WITH CHESTUBES X3. L JACQUELINE DRAIN. R-LEG HARVEST SITES WRAPPED IN COBAN DRESSING FROM GROIN TO ANKLE. R-RADIAL BERNY IN PLACE. RIJ WITH PLASMOLYTE AT 100, BURETROL AT 10ML/HR, AMIO AT 5ML/HR AND ZINACEF AT 11.4ML/HR. TIM HARRIS ON LLE. SHIFT ASSESSMENT COMPLETEED. CALL LIGHT IN REACH. WILL CONTINUE TO MONITOR.
--- NOTE | 2019-03-03 09:32 | NUR ---
RESTING IN CHAIR. AM MEDS GIVEN WITH WATER. REPORTED SOME NAUSEA AFTER EATING BREAKFAST. ZOFRAN GIVEN. WILL CONTINUE TO MONITOR.
--- NOTE | 2019-03-03 10:34 | NUR ---
SHARITA KUMAR PER DR. MELENDEZ.
--- NOTE | 2019-03-03 11:45 | NUR ---
PERCOCET GIVEN PER ORDERS.
--- NOTE | 2019-03-03 11:48 | NUR ---
MEAL TRAY DELIVERED TO ROOM. PT REFUSING TO EAT AT THIS TIME. STATES "I NORMALLY DON'T EAT BREAKFAST OR LUNCH AT HOME."
--- NOTE | 2019-03-03 12:56 | NUR ---
CT REMOVED BY DR. MELENDEZ. RESTING COMFORTABLY IN BED.
--- NOTE | 2019-03-03 13:00 | NUR ---
ORDERED 25MG LOPRESSOR PO NOW THEN BID PER DR. MELENDEZ.
--- NOTE | 2019-03-03 13:18 | NUR ---
PLASMOLYTE DC'D PER ORDERS.
--- NOTE | 2019-03-03 15:00 | NUR ---
RE-ASSESSMENT COMPLETED. RESTING COMFORTABLY IN BED. RIJ SALINE LOCKED. L-AC SALINE LOCKED. NO FEVER NOTED. VSS. WILL CONTINUE TO MONITOR.
--- NOTE | 2019-03-03 16:58 | NUR ---
MARKS CATHETER DC'D PER PROTOCOL. PT ASSISTED TO CHAIR. FAMILY MEMBER AT BEDSIDE. WILL CONTINUE TO MONITOR.
--- NOTE | 2019-03-03 17:28 | NUR ---
PT REPORTED PAIN 9/10 AFTER BEING TRANSFERRED TO CHAIR. PEROCET GIVEN PER ORDERS. ASSISTED BACK TO BED AT THIS TIME. WILL CONTINUE TO MONITOR.
--- NOTE | 2019-03-03 19:00 | NUR ---
REPORT [id number] AND ASSESSMENT COMPLETED. SEE FLWKELLYT FOR FULL DETAILS. VSS. PT REPORTS FEELING SOB. BREATHING TREATMENT GIVEN BY RT. PT PULLED UP IN BED. COUGH AND DEEP BREATHER PERFORMED. PT IS PULLING 250-500 ON IS. COUGHING WITH MINIMAL EFFORT. LAURA HEARD BILAT IN ALL LOBES. WILL MONITOR CLOSELY FOR COMPLICATIONS
[2019-03-04] VITALS (38 sets, daily range): BP systolic 83–120; BP diastolic 34–64
[2019-03-04 02:22] LABS: MAGNESIUM - SERUM 2.1 mg/dL (1.8-2.4); POTASSIUM - SERUM 4.6 mmol/L (3.5-5.1)
[2019-03-04 04:42] LABS: HEMATOCRIT 32.3 % (36.0-48.0); HEMOGLOBIN 10.6 g/dL (12-16); MCH 28.6 pg (26.0-34.0); MCHC 32.8 g/dL (31.0-37.0); MCV 87.3 fL (80.0-100.0); MEAN PLATELET VOLUME 9.4 fL (7.4-10.4); RBC 3.7 10x6/uL (4.00-5.40); RDW 15.7 % (11.5-14.5); WBC 19.7 10x3/uL (4.8-10.8)
[2019-03-04 04:55] LABS: ALBUMIN 2.5 g/dL (3.4-5.0); ANION GAP 9.1 mmol/L (8-16); BILIRUBIN - TOTAL 0.53 mg/dL (0.2-1.3); CALCIUM 7.5 mg/dL (8.5-10.1); CARBON DIOXIDE 32.3 mmol/L (21.0-32.0); CREATININE - SERUM 0.9 mg/dL (0.6-1.3); POTASSIUM - SERUM 4.4 mmol/L (3.5-5.1); PROTEIN - SERUM 5.5 g/dL (6.4-8.2)
--- NOTE | 2019-03-04 06:32 | NUR ---
PT RESTING IN BED AT THIS TIME. VSS. CURRENTLY IN FIB. AWARE. RATE 95 AT THIS TIME. NOTIFIED OF PT PAIN MED CONCERNS
--- NOTE | 2019-03-04 09:51 | NUR ---
0750-ASSISTED PT TO BEDSDIE CHAIR AMBULATED WELL WITH MINIMAL ASSISTANCE 0840-NOTIFIED DR MELENDEZ OF AFIB 84-NIBP 86/43-ORDER RECIEVED- 0850-NEOSYNEPHRINE GTT STARTED AT 0.025 MCG/KG/MIN-PT PLACED SELF IN BED-HOLD PO LOPRESSOR 0915-RHYTHM CHANGE TO SR 0945-DR MELENDEZ IN UNIT AND CURRENT SR UPDATE GIVEN
--- NOTE | 2019-03-04 14:36 | NUR ---
1100-AMBULATION HELD NIBP 92 SYS-STATED TIRED-TITRATED ELAN FOR SYS BP >100-NSR ON MONITOR 1400-TITRATED OFF NEOSYNEPHRINE PER PARAMETER-SALINE LOCKED IV, PERCOCET 5-1 TAB GIVEN- 1410-PT PLACED ON PORTABLE TELEMETRY-AMBULATED WITH PHYSICAL THERAPY 1435-STRESSED OUT OF BED UNTIL AFTER DINNER-REVIEWED WITH PT HOME RESTRICTION FOR LIFTING AT HOME -NO GREATER THAN 5LBS
--- NOTE | 2019-03-04 17:32 | NUR ---
NURSE APPROACHED BY PT DAUGHTER AND STATED HER MOTHER CANNOT USE PERCOCET BECAUSE CAUSES RASH-NOTED MULTIPLE DOSES GIVEN AND NO RASH NOTED-REQUESTED PT USE ONLY DEMEROL PO -STATES THAT'S WHAT SHE USES AT HOME-DR MELENDEZ NOTIFIED OF SAME -ORDER RECIEVED AND NOTED-DAUGHTER EXPRESSED CONCERN MOTHER IS CONFUSED-NOTED ORIENTED X2 EASILY WITH PROMPTING ON SPECIFIC DATE-AWARE YEAR AND MONTH-STATED MOTHER SAID REPUBLICAN AT NIGHT AND NOT SLEEPING
--- NOTE | 2019-03-04 22:27 | NUR ---
PT SHOWING POOR EFFORT WITH TCDB DESPITE ADEQUATE PAIN CONTROL
[2019-03-05] VITALS (24 sets, daily range): BP systolic 86–130; BP diastolic 42–69
--- NOTE | 2019-03-05 00:24 | NUR ---
PT HR HAS BEEN DECREASING INTO 40'S BEFORE QUICKLY RETURNING TO NORMAL. UP TO +/- 4 TO 6 BEATS AT A TIME. CONNECTED TO TPM. MONITORING CLOSELY FOR SUSTAINED LAURA
--- NOTE | 2019-03-05 03:44 | NUR ---
SOLITARIO KHAN COMPLETED
[2019-03-05 05:10] LABS: HEMATOCRIT 29.2 % (36.0-48.0); HEMOGLOBIN 9.5 g/dL (12-16); MCH 28.7 pg (26.0-34.0); MCHC 32.5 g/dL (31.0-37.0); MCV 88.2 fL (80.0-100.0); MEAN PLATELET VOLUME 9.3 fL (7.4-10.4); RBC 3.31 10x6/uL (4.00-5.40); RDW 15.5 % (11.5-14.5); WBC 15.4 10x3/uL (4.8-10.8)
[2019-03-05 05:20] LABS: ALBUMIN 2.3 g/dL (3.4-5.0); ALKALINE PHOSPHATASE 68 U/L (46-116); ALT (SGPT) 23 U/L (10-68); CALC OSMOLALITY 277 mosm/kg (275-300); CALCIUM 7.8 mg/dL (8.5-10.1); CARBON DIOXIDE 33.8 mmol/L (21.0-32.0); CHLORIDE - SERUM 103 mmol/L (98-107); CREATININE - SERUM 0.7 mg/dL (0.6-1.3); GLUCOSE 118 mg/dL (74-106); POTASSIUM - SERUM 4.3 mmol/L (3.5-5.1); PROTEIN - SERUM 5.5 g/dL (6.4-8.2); SODIUM 138 mmol/L (136-145); UREA NITROGEN 16 mg/dL (7-18); eGFR NON AFRICAN AMERICAN 87 mL/min (90-120)
--- NOTE | 2019-03-05 07:47 | NUR ---
0730-RECIEVED AWAKE AND ALERT-UP IN CHAIR-RESP RX IN PROGRESS-SR ON MONITOR- STRESSED TO PT TO LET NURSE KNOW IF PAIN MEDICINE NEEDED
--- NOTE | 2019-03-05 10:22 | NUR ---
AMBULATED WITH PHYSICAL THERAPY-FAMILY MEMBER AT PT SIDE-TOLERATED WELL-AGREED TO SIT UP IN CHAIR
--- NOTE | 2019-03-05 10:58 | NUR ---
R 22 WRIST GAUGE PLACED X1 ATTTEMPT-D/C'D R CORDIS WITH TIP INTACT-PER PROCEDURE AND POLICY
--- NOTE | 2019-03-05 17:32 | NUR ---
1630-PLACED PT TO PORT O2 AT 4L AND TELEMETRY-VIA WHEELCHAIR BROUGHT PT TO WAITING AREA AT HER REQUEST TO VISIT WITH SMALL GRANDCHILDREN 1700-RETURNED TO -ASSISTED TO BED-SR -NIBP 89/48-APPEARED IN BETTER SPIRITS 1730-ADDITIONAL FAMILY AT [facility]
--- NOTE | 2019-03-05 19:00 | NUR ---
REPORT RECEIVED, SHIFT ASSESSMENT COMPLETE PER FLOW SHEET, PT AAOx4, NSR ON CM, PT RESTING IN BED, DENIES PAIN OR NEEDS AT THIS TIME, OTHER VSS, WILL CONTINUE TO MONITOR
--- NOTE | 2019-03-05 19:03 | NUR ---
PT IN UNCONTROLLED A-FIB @120'S BPM, DAY SHIFT RN JOCELYNN NOTIFYING
[2019-03-05 19:44] LABS: MAGNESIUM - SERUM 2.2 mg/dL (1.8-2.4); POTASSIUM - SERUM 3.8 mmol/L (3.5-5.1)
--- NOTE | 2019-03-05 20:00 | NUR ---
DR MELENDEZ INFORMED OF PT STATUS. NEW ORDERS RECEIVED SEE JAN. WILL CONTINUE TO MONITOR.
--- NOTE | 2019-03-05 21:00 | NUR ---
PT CONVERTED TO NSR ON CM, VSS, WILL CONTINUE TO MONITOR
--- NOTE | 2019-03-05 23:00 | NUR ---
REASSESSMENT COMPLETE, PT RESTING IN BED, DENIES PAIN, SMALL CUP OF ICE WATER GIVEN PER REQUEST, REPOSITIONED IN BED FOR COMFORT, VSS, WILL CONTINUE TO MONITOR
[2019-03-06] VITALS (23 sets, daily range): BP systolic 85–112; BP diastolic 35–72
--- NOTE | 2019-03-06 00:30 | NUR ---
PT OOB TO BEDSIDE COMMODE, CLEAR YELLOW VOID, ASSISTED BACK TO BED, REPOSITIONED FOR COMFORT, SCD'S PLACED ON PT, VSS, NO FURTHER NEEDS AT THIS TIME
--- NOTE | 2019-03-06 03:00 | NUR ---
REASSESSMENT COMPLETE PER FLOW SHEET, NO ACUTE CHANGE FROM PRIOR ASSESSMENT, PT RESTING, WAKES EASY, AAOX4, DENIES NEEDS AT THIS TIME, VSS, WILL CONTINUE TO MONITOR
[2019-03-06 03:39] LABS: HEMATOCRIT 28.5 % (36.0-48.0); HEMOGLOBIN 9.5 g/dL (12-16); MCH 29.5 pg (26.0-34.0); MCHC 33.3 g/dL (31.0-37.0); MCV 88.5 fL (80.0-100.0); RBC 3.22 10x6/uL (4.00-5.40); RDW 14.4 % (11.5-14.5); WBC 12.7 10x3/uL (4.8-10.8)
[2019-03-06 04:00] LABS: ALBUMIN 2.2 g/dL (3.4-5.0); ANION GAP 7.3 mmol/L (8-16); BILIRUBIN - TOTAL 0.54 mg/dL (0.2-1.3); CALCIUM 7.6 mg/dL (8.5-10.1); CARBON DIOXIDE 31.7 mmol/L (21.0-32.0); CREATININE - SERUM 0.8 mg/dL (0.6-1.3); PROTEIN - SERUM 5.6 g/dL (6.4-8.2)
--- NOTE | 2019-03-06 05:00 | NUR ---
JACQUELINE DRAIN DRSG CHANGED, TIME AND DATED, TPM WIRES COILED, PT VSS, WILL CONTINUE TO ASSESS
--- NOTE | 2019-03-06 10:37 | NUR ---
PT UP IN CHAIR THIS AM. DR MELNEDEZ ROUNDS AND ORDERS TO DC CARDIZEM GTT. GTT OFF. SBP CONSISTENTLY AROUND 90%. SPO2 90% O24LNC. INST PT TO COUGH AND DEEP BREATH.
--- NOTE | 2019-03-06 11:09 | NUR ---
Nutrition Follow Up: Pt stated that she does not feel hungry and feels like she gets full quickly. She said that her appetite is very poor. Pt agreed to try Ensure and preferes vanilla and strawberry. RD encouraged pt to increase po intake as able to promote healing, increase strength, etc. Diet: Regular PO Intake: 30% meal avg I<O No BM since admit Wt gain noted Labs and meds reviewed Rec continue current diet. Will order Ensure TID. Rec consider an appetite stimulant. RD following.
--- NOTE | 2019-03-06 11:54 | NUR ---
PT UP IN CHAIR EATING LUNCH. BP 88/38. MAP 62. HR 86 NSR.
--- NOTE | 2019-03-06 18:35 | NUR ---
ASSISTED PT BACK TO BED. INSTRUCTED I.S. AND IMPORTANCE OF USE. PT AGREES TO USE I.S. Q1H WITH GOOD EFFORT.
--- NOTE | 2019-03-06 21:30 | NUR ---
PT TEACHING R/T MEDICATIONS DONE WITH VERBALIZED COMPREHENSION. MEDS GIVEN DOCUMENTED ON MAR NO SWALLOWING DIFFICULTIES NOTED.
--- NOTE | 2019-03-06 23:00 | NUR ---
SHIFT REASSESSMENT COMPLETED SEE FLOWSHEET. PT SLEEPING INTERMITTENTLY
[2019-03-07] VITALS (22 sets, daily range): BP systolic 93–129; BP diastolic 46–69
--- NOTE | 2019-03-07 01:00 | NUR ---
PT RESTING VSS. CONT TO MONITOR
--- NOTE | 2019-03-07 03:00 | NUR ---
PT AWAKE TEXTING ON PHONE. DENIES NEEDS. SHIFT REASSESSMENT COMPLETED SEE FLOWSHEET. NO SIGNIFICANT CHANGES
[2019-03-07 04:16] LABS: HEMATOCRIT 28.7 % (36.0-48.0); HEMOGLOBIN 9.3 g/dL (12-16); MCHC 32.4 g/dL (31.0-37.0); MCV 89.4 fL (80.0-100.0); MEAN PLATELET VOLUME 9.4 fL (7.4-10.4); RBC 3.21 10x6/uL (4.00-5.40); RDW 15.5 % (11.5-14.5)
[2019-03-07 04:28] LABS: WBC 9.4 10x3/uL (4.8-10.8)
--- NOTE | 2019-03-07 04:29 | NUR ---
PT LEAVING UNIT VIA W/C WITH STAFF FOR ORDERED PA LAT CXR
[2019-03-07 04:33] LABS: ALBUMIN 2.1 g/dL (3.4-5.0); ALKALINE PHOSPHATASE 83 U/L (46-116); ALT (SGPT) 23 U/L (10-68); CALC OSMOLALITY 278 mosm/kg (275-300); CALCIUM 7.7 mg/dL (8.5-10.1); CARBON DIOXIDE 30.6 mmol/L (21.0-32.0); CHLORIDE - SERUM 103 mmol/L (98-107); CREATININE - SERUM 0.6 mg/dL (0.6-1.3); GLUCOSE 110 mg/dL (74-106); POTASSIUM - SERUM 3.5 mmol/L (3.5-5.1); PROTEIN - SERUM 5.7 g/dL (6.4-8.2); SODIUM 140 mmol/L (136-145); eGFR NON AFRICAN AMERICAN > 90 mL/min (90-120)
[2019-03-07 04:34] LABS: UREA NITROGEN 9 mg/dL (7-18)
--- NOTE | 2019-03-07 04:50 | NUR ---
PT RETURNED TO UNIT VIA W/C WITH NO SIGNS OF DISTRESS.
--- NOTE | 2019-03-07 05:00 | NUR ---
COMPLETE BATH DONE WITH DRESSING TO SUBSTERNAL CHANGED PER ORDER. LINENS CHANGED ON BED. PT DID PARTICIPATE IN CARE AND BATH.
--- NOTE | 2019-03-07 05:30 | NUR ---
JACQUELINE DRAIN EMPTIED OF 50CC SEROUS FLUID PER ORDERS. BULB RECOMPRESSED
--- NOTE | 2019-03-07 05:45 | NUR ---
SPO2 100% OM 4L. DECREASED TO 3L N/C WILL NOTIFY RESPIRATORY. AND MONITOR
--- NOTE | 2019-03-07 06:15 | NUR ---
PO MEDS GIVEN DOCUMENTED ON JAN. NO SWALLOWING DIFFICULTY NOTED.
--- NOTE | 2019-03-07 07:40 | NUR ---
PT UP TO CHAIR. BREAKFAST TRAY SERVED AND PT EATING BREAKFAST WITH OUT DIFFICULTY.
--- NOTE | 2019-03-07 09:09 | NUR ---
PT BACK IN BED. INSTRUCTED TO GET OOB AND STAY OUT OF BED DURING THE DAY. INSTRUCTED I.S. PT PULLS APPROX 500 3 TO 4 TIMES ON I.S. THEN NOT WANTING TO USE. PT C/O CHEST SORE AND NOT WANTING TO COUGH. PO PAIN MED GIVEN AND INST IMPORTANCE OF USING I.S. AND COUGH.
--- NOTE | 2019-03-07 11:46 | NUR ---
PT ARAMIS HOWARD WITH PT. TITRATED 02 TO 2LNC.
--- NOTE | 2019-03-07 12:27 | NUR ---
SCOOTER LEOS AND MORIAH KLC GIVEN ORDERED.
--- NOTE | 2019-03-07 12:43 | NUR ---
ASSISTED PT TO BATHROOM TO VOID. JACQUELINE DRAIN EMPTIED 70CC.
--- NOTE | 2019-03-07 13:01 | NUR ---
pt amb with pt entire length of hallway. 02 2lnc. pt genny well. 500ft.
--- NOTE | 2019-03-07 19:00 | NUR ---
REPORT RECEIVED CARE ASSUMED INITIAL SHIFT ASSESSMENT COMPLETED SEE FLOWSHEET. PT AAOX4 WATCHING TELEVISION. LYING IN BED. MONITORED PER STANDARD CVICU PROTOCOL WITH ALL ALARMS SET, VERIFIED AND AUDIBLE AT NURSES STATION. JACQUELINE DRAIN PRESENT WITH APPROXIMATELY 25CC SEROUS DRAINAGE IN COMPRESSED BULB. BED IN LOW POSITION CALL LIGHT IN REACH.
--- NOTE | 2019-03-07 20:45 | NUR ---
HS MEDS GIVEN DOCUMENTED ON JAN. NO SWALLOWING DIFFICULTY. PT AGREABLE TO HS SNACK OF APPLE. ATE 1/2 OF LARGE APPLE.
--- NOTE | 2019-03-07 22:00 | NUR ---
PT UP TO BATHROOM TO VOID. GAIT STEADY. TOLERATED ACTIVITY WITHOUT DIFFICULTY
--- NOTE | 2019-03-07 23:00 | NUR ---
SHIFT REASSESSMENT COMPLETED SEE FLOWSHEET. NO SIGNIFICANT CHANGES
[2019-03-08] VITALS (12 sets, daily range): BP systolic 92–124; BP diastolic 47–64
--- NOTE | 2019-03-08 01:00 | NUR ---
PT SLEEPING WELL TONIGHT. HAS TOLERATERED ROOM AIR ALL NIGHT. MAINTAINING ADEQUATE SPO2 ON ROOM AIR.
--- NOTE | 2019-03-08 03:00 | NUR ---
SHIFT REASSESSMENT COMPLETED SEE FLOWSHEET. NO SIGNIFICANT CHANGES
--- NOTE | 2019-03-08 03:59 | NUR ---
PT LEAVING UNIT VIA W/C WITH STAFF FOR ORDERED CXR
--- NOTE | 2019-03-08 04:10 | NUR ---
PT RETURNED TO UNIT VIA W/C WITH HOSPITAL STAFF. NO EVIDENCE OF DISTRESS
--- NOTE | 2019-03-08 09:23 | NUR ---
Nutrition Follow Up: Chart reviewed Diet: Regular; Ensure TID PO Intake: 53% meal avg - po intake is improving I<O Wt loss noted BM: 02/21/19 - no BM x 15 days?? Labs reviewed Meds noted including Reglan Rec continue current diet, supplement regimen. Rec consider bowel regimen. RD following.
--- NOTE | 2019-03-08 10:30 | NUR ---
PT UP WITH PT AND AMB HALLS ON RA. DR MELENDEZ HERE THIS AM.
[2019-03-08] MEDS ORDERED: AMIODARONE HCL200 MG PO (12:35)
[2019-03-08] MEDS ORDERED: K-DUR20 MEQ PO (12:36)
[2019-03-08] MEDS ORDERED: FUROSEMIDE20 MG PO (12:36)
[2019-03-08] MEDS ORDERED: COLACE100 MG PO (12:36)
--- NOTE | 2019-03-08 13:36 | NUR ---
DARIEL DCD JACQUELINE DRAIN AND PM WIRES. PT DID LAY IN BED FOR 30 MIN AFTER. CM IN TO SEE PT AND DCD PIV R WRIST.
--- NOTE | 2019-03-08 15:23 | MORECARE ---
CASE MANAGEMENT DISCHARGE SUMMARY PATIENT: CAT ROSARIO UNIT: [id number] ADM DATE: 03/02/19 AGE: 74 : 45 SEX: F ROOM/BED: [facility] AUTHOR: JOCY ALEGRIA PHYSICIAN: REFERRING PHYSICIAN: DARLIN MELENDEZ MD DATE OF SERVICE: 03/08/19 Discharge Plan Patient Name: CAT ROSARIO [facility] [facility] 1945 Planned Disposition: Home Anticipated Discharge Date: Discharge Date: 03/08/2019 Expected LOS: Initial Reviewer: [email or web address] Initial Review Date: 03/08/2019 Generated: 03/08/19 4:23 pm Patient Name: CAT ROSARIO Page [id number] at 1523 All edits/amendments must be made on the electronic document DICTATION DATE: 03/08/19 152 FINANCE TEACHER: FRANK 03/08/19 152 RPT#: [id number] DC DATE:03/08/19 STATUS: DIS IN [facility] [address] [place] [address] END OF REPORT
--- NOTE | 2019-03-08 15:31 | MORECARE ---
CASE MANAGEMENT DISCHARGE SUMMARY PATIENT: CAT ROSARIO UNIT: [id number] ADM DATE: 03/02/19 AGE: 74 : 45 SEX: F [facility] AUTHOR: RAJI,DOC PHYSICIAN: REFERRING PHYSICIAN: DARLIN MELENDEZ MD DATE OF SERVICE: 03/08/19 Discharge Plan Patient Name: CAT ROSARIO Facility: [facility]:[place] : 1945 Planned Disposition: Home Anticipated Discharge Date: Discharge Date: 03/08/2019 Expected LOS: Initial Reviewer: [email or web address] Initial Review Date: 03/08/2019 Generated: 03/08/19 4:31 pm Comments DCP- Discharge Planning Updated by [email or web address]: Loida Davidson on 03/08/19 2:[address] LATE ENTRY 03/08/19 @ 1337 Patient Name: CAT ROSARIO Admission Status: Elective Accout number: [id number] Admission Date: 03-02-2019 : 1945 Admission Diagnosis:ATHSCL HEART DISEASE OF [place] CORONARY ARTERY W/O ANG Attending: DARLIN MELENDEZ Current LOS: 6 Anticipated DC Date: Planned Disposition: Home Primary Insurance: MEDICARE A & B Discharge Planning Comments: CM met with patient at bedside after explaining CM role and obtaining verbal consent. Patient lives at home with her and plans to return there upon discharge. Patient feels this would be a safe discharge. CM discussed availability / needs of home health and medical equipment. Patient denies any discharge needs at this time. Patient states she will have family drive her home upon discharge. CM will continue to follow and assist as needed with discharge planning / needs. D/C IMM explained and served 03/08/19 @ 1336. Inventory Control Manager: Loida Davidson DCPIA - Discharge Planning Initial Assessment Updated by [email or web address]: Loida Davidson on 03/08/19 3:24 pm * Is the patient Alert and Oriented? Yes * How many steps to enter\exit or inside your home? RAMP * PCP [facility] * [facility] * Preadmission Environment Home with Family * ADLs Independent * Equipment None * List name and contact numbers for known caregivers / representatives who currently or will assist patient after discharge: TONY ROSARIO - SPOUSE - [phone] * Verbal permission to speak to the caregivers and representatives has been obtained from the patient. Yes * Community resources currently utilized None * Additional services required to return to the preadmission environment? No * Can the patient safely return to the preadmission environment? Yes * Has this patient been hospitalized within the prior 30 days at any hospital? No Last DP export: 03/08/19 2:23 p Patient Name: CAT ROSARIO Page 73700 at 1531 All edits/amendments must be made on the electronic document DICTATION DATE: 03/08/191530 NET PROGRAMMER: FRANK 03/08/191530 RPT#: [id number] DC DATE:03/08/19 STATUS: DIS IN [facility] [address] [place] [address] END OF REPORT
--- NOTE | 2019-03-08 16:38 | MORECARE ---
CASE MANAGEMENT DISCHARGE SUMMARY PATIENT: CAT ROSARIO UNIT: [id number] ADM DATE: 03/02/19 AGE: 74 : 45 SEX: F [facility] AUTHOR: RAJI,DOC PHYSICIAN: REFERRING PHYSICIAN: DARLIN MELENDEZ MD DATE OF SERVICE: 03/08/19 Discharge Plan Patient Name: CAT ROSARIO Facility: [facility]:[place] : 1945 Planned Disposition: Home Anticipated Discharge Date: Discharge Date: 03/08/2019 Expected LOS: Initial Reviewer: [email or web address] Initial Review Date: 03/08/2019 Generated: 03/08/19 5:37 pm Comments DCP- Discharge Planning Updated by [email or web address]: Loida Davidson on 03/08/19 2:[address] LATE ENTRY 03/08/19 @ 1335 Patient Name: CAT ROSARIO Admission Status: Elective Accout number: [id number] Admission Date: 03-02-2019 : 1945 Admission Diagnosis:ATHSCL HEART DISEASE OF [place] CORONARY ARTERY W/O ANG Attending: DARLIN MELENDEZ Current LOS: 6 Anticipated DC Date: Planned Disposition: Home Primary Insurance: MEDICARE A & B Discharge Planning Comments: CM met with patient at bedside after explaining CM role and obtaining verbal consent. Patient lives at home with her and plans to return there upon discharge. Patient feels this would be a safe discharge. CM discussed availability / needs of home health and medical equipment. Patient denies any discharge needs at this time. Patient states she will have family drive her home upon discharge. CM will continue to follow and assist as needed with discharge planning / needs. D/C IMM explained and served 03/08/19 @ 1336. Supervisor Advertising Dispatch Clerks: Loida Davidson DCPIA - Discharge Planning Initial Assessment Updated by [email or web address]: Loida Davidson on 03/08/19 3:24 pm * Is the patient Alert and Oriented? Yes * How many steps to enter\exit or inside your home? RAMP * PCP [facility] * [facility] * Preadmission Environment Home with Family * ADLs Independent * Equipment None * List name and contact numbers for known caregivers / representatives who currently or will assist patient after discharge: TONY ROSARIO - SPOUSE - [phone] * Verbal permission to speak to the caregivers and representatives has been obtained from the patient. Yes * Community resources currently utilized None * Additional services required to return to the preadmission environment? No * Can the patient safely return to the preadmission environment? Yes * Has this patient been hospitalized within the prior 30 days at any hospital? No Coverage Notice Reviewer: [email or web address] Merrill Davidson Notice Issued Date-Time: 03/08/2019 13:36 Notice Type: IM Discharge Notice Notice Delivered To: Patient Relationship to Patient: Self Antisqueak Worker Name: Delivery Method: HAND - Hand Delivered Leah Days: Prior Verbal Notification: Recipient Understood Notice: Yes Recipient Signature: Yes Med Rec Note Co-signed by Attending: Coverage Notice Comment: Last DP export: 03/08/19 2:31 p Patient Name: CAT ROSARIO Page 31677 at 1638 All edits/amendments must be made on the electronic document DICTATION DATE: 03/08/19 1637 WOODWORKING SHOP HAND: FRANK 03/08/19 1637 RPT#: [id number] DC DATE:03/08/19 STATUS: DIS IN [facility] [address] [place] [address] END OF REPORT
--- NOTE | 2019-03-11 09:17 | OP ---
PATIENT NAME: CAT ROSARIO MEDICAL RECORD: [id number] :[birth year] LOCATION:D.CVI D.CV04 ADMISSION DATE:03/02/19 SURGEON: SEB MELENDEZ MD DATE OF OPERATION: 03/02/2019 SURGEON: Seb Melendez MD BAK[employer] SALES MANAGER: Ezra Maher OPERATION PERFORMED: 1. Coronary artery bypass graft times 3 (left internal mammary artery to LAD, reverse saphenous vein graft from aorta to obtuse marginal and aorta to posterior descending artery). 2. Endoscopic saphenous vein harvest. PREOPERATIVE DIAGNOSIS: Coronary artery disease. POSTOPERATIVE DIAGNOSIS: Coronary artery disease. ANESTHESIA: General endotracheal anesthesia. ESTIMATED BLOOD LOSS: Total cardiopulmonary bypass with Cell Saver retransfusion. COMPLICATIONS: None. SPECIMENS: None. CONDITION: Stable. DISPOSITION: CV ICU. OPERATIVE FINDINGS: 1. Greater saphenous vein with multiple thin spots and varicosities. 2. LAD 2.0 mm. 3. First obtuse marginal 1.5 mm vessel and thin walled. 4. Posterior descending artery 1.5 mm. OPERATIVE INDICATION: Coronary artery disease. OPERATIVE SUMMARY IN DETAIL: The patient was brought to the operative suite. General anesthesia was obtained. The patient was prepped and draped. Greater saphenous vein was harvested in the right lower extremity utilizing endoscopic technique. Side branches were divided with electrocautery. The vessel was ligated proximally and distally, removed. Side branches were tied and thin spots were oversewn with Prolene. Leg was later irrigated and closed in 2 layers and wrapped with an elastic wrap. Median sternotomy incision was made. Subcutaneous tissue was divided with electrocautery. Sternum was divided with a saw. The left hemisternum was elevated. Left pleural cavity was entered. Left internal mammary was taken to the pedicle graft. Sternal retractor was placed. Pericardium was opened. Heparin was given. Aorta was cannulated. Dual stage venous cannula was inserted. The internal OPERATIVE REPORT [id number] CAT ROSARIO mammary was clipped distally and made ready for anastomosis. The patient was placed on cardiopulmonary bypass after activated clotting time was appropriately elevated. Sites for distal anastomosis were selected. The patient's temperature was allowed to drift downwardly. Antegrade cardioplegia cannula was inserted. Crossclamp was placed. Cardioplegia was given antegrade and this repeated at 15 and 20 intervals including down the completed vein graft. Distal anastomoses were performed in standard technique. Proximal anastomosis with single cross-clamp technique. The patient was fully rewarmed. The crossclamp was removed. Aortic root de-aired. Proximal anastomoses tied down. Vein grafts de-aired and flow was restored. Proximal and distal anastomotic sites were inspected for bleeding. Hemostasis was ensured. Atrial and ventricular pacing wires were placed. The patient was weaned from cardiopulmonary bypass and was stable. The patient was decannulated. Cannulation sites were oversewn. Protamine was given. Thorough irrigation was undertaken. Hemostasis was again ensured. A drain was placed in the mediastinum and pleural cavities. Pericardial fat was loosely reapproximated in the midline. Left chest evacuated and irrigated. The internal mammary harvest site was inspected for bleeding. Sternum was closed with wires. Fascia was closed. Subcutaneous tissue was closed. Skin was closed. Dermabond was placed. The needle and sponge counts were reported as correct and the patient was taken to ICU in stable condition. TRANSINT:[id number] Voice Confirmation ID: [id number] DOCUMENT ID: [id number] SEB MELENDEZ MD at 0917 CC: ADRIENNE DAUGHERTY M.D. [id number] DICTATION DATE: 03/10/19 1510 CLIMATOLOGY TEACHER: 03/10/19 1605 DIS IN 03/08/19 [place] [id number] [place] [address]
--- NOTE | 2019-03-15 10:38 | TEE ---
PATIENT:CAT ROSARIO MEDICAL RECORD: [id number] LOCATION:[place] [address] AGE OF PATIENT: 74 ADMISSION DATE: 03/02/19 SEX: F REFERRING PHYSICIAN: INTERPRETING PHYSICIAN: NICK WEAVER MD TRANSESOPHAGEAL ECHOCARDIOGRAM Date: 03/02/19 EAMON CHARGE Y INDICATIONS: CABG PREMEDICATIONS: PATIENT'S RESPONSE PROCEDURE DOPPLER MEASUREMENTS: LVIT LA PA RA LVOT RVOT Asc. Ao AV Gradient Peak AV Mean AV Area MV Gradient Peak MV Mean MV Area INTERPRETATION: Doppler: 2-D: COLOR FLOW DOPPLER NORMAL SALINE STUDY: MISCELLANOUS: DIAGNOSIS: PLAN: Associate Marketing Manager:2 Dr. Lawrence Stone Mason: Blaine CALDERON COMMENTS: AL PATIENT DATE OF SERVICE: 03/02/2019 PROCEDURE: Transesophageal echo evaluation of valvular structures during bypass surgery. FINDINGS: 1. Left ventricular chamber size is within normal limits. Left ventricular systolic function is normal. Overall ejection fraction estimated at 55%. 2. Left atrium, right atrium, and right ventricular chamber sizes are within TRANSESOPHAGEAL ECHOCARDIOGRAM REPORT [id number] CAT ROSAIRO CLA normal limits. 3. Valvular structures have normal structure and motion. 4. Doppler interrogation reveals [id number] mitral regurgitation. No other valvular insufficiency or stenosis. 5. No evidence of pericardial effusion or left ventricular thrombus. TRANSINT:[id number] Voice Confirmation ID: [id number] DOCUMENT ID: [id number] at 1038 CC: [id number] DICTATION DATE: 03/02/19 1646 OPEN SOURCE DEVELOPER: 03/03/19 1024 DIS IN 03/08/19 [place] [address] [address] [place] [address]
== END 2019-03-08 14:53 | disposition home or self-care (01) | DRG 236 ==
LOC: D.CVICU 03-02 05:00 → D.SDCHOLD 03-02 05:00 → D.CVICU 03-02 10:10 → D.SDCHOLD 03-02 10:30 → D.CVICU 03-08 14:53
PROVIDERS: ADMIT Thoracic Surgery (Cardiothoracic Vascular Surgery); ATTEND Thoracic Surgery (Cardiothoracic Vascular Surgery)
PROC: 021109W Bypass Coronary Artery, Two Arteries from Aorta with Autologous Venous Tissue, Open Approach (ICD-10-PCS; 2019-03-02)
PROC: 06BP4ZZ Excision of Right Saphenous Vein, Percutaneous Endoscopic Approach (ICD-10-PCS; 2019-03-02)
PROC: B24BZZ4 Ultrasonography of Heart with Aorta, Transesophageal (ICD-10-PCS; 2019-03-02)
PROC: 5A1221Z Performance of Cardiac Output, Continuous (ICD-10-PCS; 2019-03-02)
PROC: 02100Z9 Bypass Coronary Artery, One Artery from Left Internal Mammary, Open Approach (ICD-10-PCS; principal; 2019-03-02 07:30)
DX: I25.10 Atherosclerotic heart disease of native coronary artery without angina pectoris (principal); J98.11 Atelectasis; I48.91 Unspecified atrial fibrillation; F17.200 Nicotine dependence, unspecified, uncomplicated; J43.9 Emphysema, unspecified

== ENCOUNTER → 2019-03-29 10:45 | Outpatient (CLI) | payer MEDICARE, BC ==
[2019-03-03 09:28] VITALS: BMI 25.6
[~2019-03-29 10:45] MED LIST changes: +AMIODARONE HCL200 MG PO; +COLACE100 MG PO; +FUROSEMIDE20 MG PO; +K-DUR20 MEQ PO
[2019-03-29 11:40] LABS: HEMATOCRIT 35.4 % (36.0-48.0); HEMOGLOBIN 11.5 g/dL (12-16); MCH 29.1 pg (26.0-34.0); MCHC 32.5 g/dL (31.0-37.0); MCV 89.6 fL (80.0-100.0); MEAN PLATELET VOLUME 9.5 fL (7.4-10.4); RBC 3.95 10x6/uL (4.00-5.40); RDW 15.7 % (11.5-14.5); WBC 7.8 10x3/uL (4.8-10.8)
[2019-03-29 11:52] LABS: ALBUMIN 3.4 g/dL (3.4-5.0); ANION GAP 12.6 mmol/L (8-16); BILIRUBIN - TOTAL 0.41 mg/dL (0.2-1.3); CALCIUM 8.6 mg/dL (8.5-10.1); CARBON DIOXIDE 28.3 mmol/L (21.0-32.0); CREATININE - SERUM 0.9 mg/dL (0.6-1.3); POTASSIUM - SERUM 3.9 mmol/L (3.5-5.1); PROTEIN - SERUM 7.3 g/dL (6.4-8.2)
== END | disposition home or self-care (01) ==
LOC: D.RAD 10:45
PROVIDERS: ATTEND Thoracic Surgery (Cardiothoracic Vascular Surgery)
DX: J90 Pleural effusion, not elsewhere classified (principal); D64.9 Anemia, unspecified

== ENCOUNTER 2019-08-04 20:47 | Inpatient (IN) | payer MEDICARE, BC ==
[~2019-08-04] VITALS: Ht 157.5 cm; Wt 56.7 kg
[2019-08-04 21:06] LABS: BASOPHILS 0 % (0-2); EOSINOPHILS 0.8 % (0-7); HEMATOCRIT 36.4 % (36.0-48.0); HEMOGLOBIN 12.3 g/dL (12-16); IMMATURE GRANULOCYTES 0.3 % (0-5); LYMPHOCYTES 8.2 % (15-50); MCH 29.1 pg (26.0-34.0); MCHC 33.8 g/dL (31.0-37.0); MCV 86.1 fL (80.0-100.0); MEAN PLATELET VOLUME 9.7 fL (7.4-10.4); MONOCYTES 6.2 % (2-11); NEUTROPHILS 84.5 % (40-80); RBC 4.23 10x6/uL (4.00-5.40); RDW 14.4 % (11.5-14.5); WBC 6.6 10x3/uL (4.8-10.8)
[2019-08-04 21:11] LABS: PLATELET COUNT 180 10x3/uL (130-400)
[2019-08-04 21:19] LABS: APTT 31.5 SECONDS (22.8-39.4); INR 1.26 (0.85-1.17); PROTIME 15.3 SECONDS (11.6-15.0)
[2019-08-04 21:36] LABS: ALBUMIN 3.2 g/dL (3.4-5.0); ALKALINE PHOSPHATASE 377 U/L (46-116); ALT (SGPT) 697 U/L (10-68); BILIRUBIN - TOTAL 1.51 mg/dL (0.2-1.3); CALCIUM 8.4 mg/dL (8.5-10.1); CARBON DIOXIDE 29.5 mmol/L (21.0-32.0); CHLORIDE - SERUM 100 mmol/L (98-107); CREATININE - SERUM 0.9 mg/dL (0.6-1.3); POTASSIUM - SERUM 3.4 mmol/L (3.5-5.1); PROTEIN - SERUM 7.1 g/dL (6.4-8.2); SODIUM 135 mmol/L (136-145); UREA NITROGEN 12 mg/dL (7-18); eGFR NON AFRICAN AMERICAN 65 mL/min (90-120)
[2019-08-04 21:38] LABS: CALC OSMOLALITY 272 mosm/kg (275-300); GLUCOSE 144 mg/dL (74-106)
[2019-08-04 21:40] LABS: CKMB 0.4 U/L (0.0-3.6); CREATINE KINASE 58 UL (21-215); MAGNESIUM - SERUM 1.9 mg/dL (1.8-2.4); TROPONIN-I < 0.017 ng/mL (0.000-0.060)
[2019-08-04 21:51] VITALS: BP 119/60
[2019-08-04 21:55] VITALS: BP 95/54
[2019-08-04] MEDS ORDERED: BACLOFEN10 MG (22:14)
[2019-08-04 22:15] VITALS: BP 128/68
[2019-08-04 22:15] LABS: AMYLASE - SERUM 143 U/L (25-115); LIPASE 198 U/L (73-393)
[2019-08-04] MEDS ORDERED: MACROBID100 MG PO (22:15)
[2019-08-04 22:30] VITALS: BP 127/69
--- NOTE | 2019-08-05 00:46 | NUR ---
HOURLY SIGN LANGUAGE INTERPRETER INFORMED STATES TO CHART TB SKIN TEST ON MISC FORM. FORM FILLED OUT AND SUMBITTED. TB SKIN ADMIN TO L FOREARM. PT TOLERATED WELL.
[2019-08-05 02:14] VITALS: BP 120/63; BMI 22.9
[2019-08-05 04:00] VITALS: BP 120/63
[2019-08-05 07:54] LABS: BASOPHILS 0.3 % (0-2); EOSINOPHILS 0 % (0-7); HEMATOCRIT 33.3 % (36.0-48.0); HEMOGLOBIN 11.3 g/dL (12-16); IMMATURE GRANULOCYTES 0.3 % (0-5); LYMPHOCYTES 13.4 % (15-50); MCHC 33.9 g/dL (31.0-37.0); MCV 85.6 fL (80.0-100.0); MEAN PLATELET VOLUME 10.1 fL (7.4-10.4); MONOCYTES 1.3 % (2-11); NEUTROPHILS 84.7 % (40-80); PLATELET COUNT 188 10x3/uL (130-400); RBC 3.89 10x6/uL (4.00-5.40); RDW 14.4 % (11.5-14.5); WBC 3.7 10x3/uL (4.8-10.8)
--- NOTE | 2019-08-05 08:00 | NUR ---
ALERT AND ORIENTED X4. IV TO LEFT A/C WITH IVF INFUSING AT PRESCRIBED RATE WITH NO S/S OF INFECTION/INFILTRATION. CONTINUED AIRBOURNE ISOLATION AT THIS TIME. CRACKLES NOTED TO LLQ POSTERIOR OF LUNG FIELD AND OTHERWISE CLEAR. DENIES ANY PAIN OR DISCOMFORT AND ENCOURAGED TO USE CALL LIGHT FOR ASSIST.
[2019-08-05 08:04] LABS: ALBUMIN 2.9 g/dL (3.4-5.0); ALKALINE PHOSPHATASE 398 U/L (46-116); ALT (SGPT) 1017 U/L (10-68); BILIRUBIN - TOTAL 0.96 mg/dL (0.2-1.3); CALC OSMOLALITY 284 mosm/kg (275-300); CALCIUM 8.3 mg/dL (8.5-10.1); CARBON DIOXIDE 26.6 mmol/L (21.0-32.0); CHLORIDE - SERUM 108 mmol/L (98-107); CREATININE - SERUM 0.7 mg/dL (0.6-1.3); GLUCOSE 154 mg/dL (74-106); POTASSIUM - SERUM 3.7 mmol/L (3.5-5.1); SODIUM 142 mmol/L (136-145); TROPONIN-I < 0.017 ng/mL (0.000-0.060); UREA NITROGEN 11 mg/dL (7-18); eGFR NON AFRICAN AMERICAN 87 mL/min (90-120)
[2019-08-05 09:14] VITALS: BP 135/53
[2019-08-05 13:25] VITALS: BP 121/56
[2019-08-05 17:19] VITALS: BP 135/72
--- NOTE | 2019-08-05 19:00 | NUR ---
REPORT RECEVIED AND CARE OF PT ASSUMED. PT LYING IN LOW BLOCK'S POSITION WATCHING TV. IV TO LEFT AC PATENT WITH NS INFUSING AT KVO. DROPLET ISOLACION PRECAUTIONS IN PLACE. WILL MONITOR FOR NEEDS.
[2019-08-05 20:00] VITALS: BP 137/63
--- NOTE | 2019-08-05 21:08 | NUR ---
HS MEDICATIONS GIVEN TO INCLUDE ZOFRAN PER REQUEST FOR C/O NAUSEA. WILL MONITOR FOR NEEDS.
[2019-08-06] VITALS: BP 139/60
[2019-08-06 04:00] VITALS: BP 124/64
[2019-08-06 07:24] LABS: BASOPHILS 0.1 % (0-2); EOSINOPHILS 0.6 % (0-7); HEMATOCRIT 33.3 % (36.0-48.0); HEMOGLOBIN 11.3 g/dL (12-16); IMMATURE GRANULOCYTES 0.2 % (0-5); LYMPHOCYTES 21.4 % (15-50); MCHC 33.9 g/dL (31.0-37.0); MCV 85.4 fL (80.0-100.0); MEAN PLATELET VOLUME 10.2 fL (7.4-10.4); MONOCYTES 7.2 % (2-11); NEUTROPHILS 70.5 % (40-80); PLATELET COUNT 216 10x3/uL (130-400); RDW 14.2 % (11.5-14.5)
[2019-08-06 07:33] LABS: WBC 8.7 10x3/uL (4.8-10.8)
[2019-08-06 07:38] LABS: % SATURATION 30 % (15-55); IRON 79 ug/dl (35-150); TOTAL IRON BIND CAPACITY 262 ug/dl (260-445); UNSAT IRON BIND CAPACITY 183 ug/dl (150-375)
[2019-08-06 07:52] LABS: ALKALINE PHOSPHATASE 378 U/L (46-116); ALT (SGPT) 840 U/L (10-68); BILIRUBIN - TOTAL 0.37 mg/dL (0.2-1.3); CALCIUM 7.9 mg/dL (8.5-10.1); CARBON DIOXIDE 28.1 mmol/L (21.0-32.0); CHLORIDE - SERUM 111 mmol/L (98-107); CREATININE - SERUM 0.7 mg/dL (0.6-1.3); FERRITIN 417 ng/mL (3-244); POTASSIUM - SERUM 3.6 mmol/L (3.5-5.1); PROTEIN - SERUM 6.5 g/dL (6.4-8.2); SODIUM 145 mmol/L (136-145); eGFR NON AFRICAN AMERICAN 87 mL/min (90-120)
[2019-08-06 07:54] LABS: CALC OSMOLALITY 288 mosm/kg (275-300); GLUCOSE 80 mg/dL (74-106); UREA NITROGEN 14 mg/dL (7-18)
[2019-08-06 08:21] VITALS: BP 132/69
--- NOTE | 2019-08-06 09:00 | NUR ---
ALERT AND ORIENTED X4. LUNGS CTA. HRRR AND DENIES ANY CHEST PAIN OR DISCOMFORT. SKIN INTACT. TB SKIN TEST READ AND NEGATIVE WITH ISOLATION DISCONTINUED. PT CONTINUES IVF TO RT. ARM WITH NO S/S OF INFECTION/INFILTRATION. ENCOURAGED TO USE CALL LIGHT FOR ASIST.
[2019-08-06 11:57] VITALS: BP 113/54
--- NOTE | 2019-08-06 16:29 | MORECARE ---
CASE MANAGEMENT DISCHARGE SUMMARY PATIENT: CAT ROSARIO UNIT: [id number] ADM DATE: 08/05/19 AGE: 74 : 45 SEX: F ROOM/BED: D.2201 AUTHOR: JOCY ALEGRIA PHYSICIAN: REFERRING PHYSICIAN: TONY WALLS MD DATE OF SERVICE: 08/06/19 Discharge Plan Patient Name: CAT ROSARIO [facility] [facility] 1945 Planned Disposition: Home Anticipated Discharge Date: Discharge Date: Expected LOS: Initial Reviewer: [email or web address] Initial Review Date: 08/05/2019 Generated: 08/06/19 5:28 pm Patient Name: CAT ROSARIO Page [id number] at 1627 All edits/amendments must be made on the electronic document DICTATION DATE: 08/06/191627 VETERINARIAN SMALL ANIMAL: FRANK 08/06/198 RPT#: [id number] [place] DATE: STATUS: ADM IN [facility] [address] [place] [address] END OF REPORT
--- NOTE | 2019-08-06 16:35 | MORECARE ---
CASE MANAGEMENT DISCHARGE SUMMARY PATIENT: CAT ROSARIO UNIT: [id number] ADM DATE: 08/05/19 AGE: 74 : 45 SEX: F ROOM/BED: D.2201 AUTHOR: JOCY ALEGRIA PHYSICIAN: REFERRING PHYSICIAN: TONY WALLS MD DATE OF SERVICE: 08/06/19 Discharge Plan Patient Name: CAT ROSARIO [facility] [facility] 1945 Planned Disposition: Home Anticipated Discharge Date: Discharge Date: Expected LOS: Initial Reviewer: [email or web address] Initial Review Date: 08/05/2019 Generated: 08/06/19 5:35 pm DCPIA - Discharge Planning Initial Assessment Updated by [email or web address]: Keila Reyes on 08/06/19 4:32 pm * Is the patient Alert and Oriented? Yes * How many steps to enter\exit or inside your home? 7 steps w/ * [facility] [place] * [facility] * Preadmission Environment Home with Family * ADLs Independent * Equipment None * Other Equipment N/A * List name and contact numbers for known caregivers / representatives who currently or will assist patient after discharge: TONY ROSARIO- - [phone] * Community resources currently utilized None * Please name any agencies selected above. NONE * Additional services required to return to the preadmission environment? No * Can the patient safely return to the preadmission environment? Yes * Has this patient been hospitalized within the prior 30 days at any hospital? No Last DP export: 08/06/19 3:28 p Patient Name: CAT ROSARIO Page [id number] at 1635 All edits/amendments must be made on the electronic document DICTATION DATE: 08/06/19 1635 NURSE COMPANION: FRANK 08/06/19 1635 RPT#: [id number] DC DATE: STATUS: ADM IN [facility] [address] [place] [address] END OF REPORT
[2019-08-06 16:48] VITALS: BP 118/88
--- NOTE | 2019-08-06 16:48 | MORECARE ---
CASE MANAGEMENT DISCHARGE SUMMARY PATIENT: CAT ROSARIO UNIT: [id number] ADM DATE: 08/05/19 AGE: 74 : 45 SEX: F ROOM/BED: D.2208 AUTHOR: RAJI,DOC PHYSICIAN: REFERRING PHYSICIAN: TONY WALLS MD DATE OF SERVICE: 08/06/19 Discharge Plan Patient Name: CAT ROSARIO Facility: [facility]:[place] : 1945 Planned Disposition: Home Anticipated Discharge Date: Discharge Date: Expected LOS: Initial Reviewer: [email or web address] Initial Review Date: 08/05/2019 Generated: 08/06/19 5:48 pm Comments DCP- Discharge Planning Updated by [email or web address]: Keila Reyes on 08/06/19 3:[address] CM INTRODUCED HERSELF TO THE PATIENT. EXPLAINED I HAD RECEIVED A CASE MANAGEMENT CONSULT. EXPLAINED MY ROLE. PATIENT GAVE PERMISSION FOR THE INTERVIEW. SHE QUICKLY STATES "I DON'T KNOW MY NEEDS BECAUSE I DON'T KNOW MY DIAGNOSIS". SHE DOES NOT FEEL SHE HAS ANY NEEDS AT PRESENT BUT IS NOT CERTAIN. HER HUSAND IS IN A WHEELCHAIR FROM "A SURGERY GONE BAD". SHE ASSIST HIM IN HIS CARE. SHE HAS A DAUGHTER WHO LIVES NEAR. THE DAUGHTER WILL LIKELY PROVIDE TRANSPORTATION WHEN SHE IS DISCHARGED. SHE DOES NOT UTILZE ANY HOME HEALTH OR COMMUNITY SERVICES. HER HAS HAD [facility] RECENTLY. THERE ARE 7 STEPS W/ RAILING TO ENTER HER HOME HOWEVERE SHE ALSO HAS A RAMP. DR ANA ROSA DAVIDSON IN [place] IS HER PRIMARY MD. SHE WOULD LIKE INFORMATION FAXED TO HIS OFFICE AT DISCHARGE. SHE UTILIZES [employer] IN [place]. CM ADVISED THAT CASE MANGEMENT IS AVAILABLE TO ASSIST W/ DISCHARGE NEEDS WHEN SHE KNOWS HER DIAGNOSIS AND NEEDS. WILL FOLLOW TO ASSIST. DCPIA - Discharge Planning Initial Assessment Updated by [id number]: Keila Reyes on 08/06/19 4:32 pm * Is the patient Alert and Oriented? Yes * How many steps to enter\\exit or inside your home? 7 steps w/ * PCP DR ANA ROSA DAVIDSON [place]. [place] * Pharmacy [facility] * Preadmission Environment Home with Family * ADLs Independent * Equipment None * Other Equipment N/A * List name and contact numbers for known caregivers / representatives who currently or will assist patient after discharge: TONY ROSARIO- - [phone] * Community resources currently utilized None * Please name any agencies selected above. NONE * Additional services required to return to the preadmission environment? No * Can the patient safely return to the preadmission environment? Yes * Has this patient been hospitalized within the prior 30 days at any hospital? No Last DP export: 08/06/19 3:35 p Patient Name: CAT ROSARIO Page [id number] at 1648 All edits/amendments must be made on the electronic document DICTATION DATE: 08/06/191646 WHEELCHAIR VAN OPERATOR FIRST RESPONDER: FRANK 08/06/191646 RPT#: [id number] DC DATE: STATUS: ADM IN [facility] [address] [place] [address] END OF REPORT
--- NOTE | 2019-08-06 19:00 | NUR ---
BEDSIDE REPORT RECEIVED AND CARE OF PT ASSUMED. PT LYING IN LOW BLOCK'S POSITION WATCHING TV. IV TO LEFT FA PATENT WITH NS INFSUING AT KVO. TELEMETRY IN USE AND READING 75 SR AT THIS ASSESSMENT. WILL MONITOR FOR NEEDS. OFFERED TO GET PT IN AND OUT CATH SUPPLIES IF SHE NEEDS THEM.
--- NOTE | 2019-08-06 20:51 | NUR ---
HS MEDICATIONS GIVEN TO INCLUDE ATIVAN 0.5 MG PO SLEEP AID. WILL CONTINUE TO MONITOR FOR NEEDS.
[2019-08-06 21:00] VITALS: BP 126/63
[2019-08-07 01:33] VITALS: BP 159/67
[2019-08-07 04:00] VITALS: BP 123/60
[2019-08-07 06:22] LABS: BASOPHILS 0.2 % (0-2); EOSINOPHILS 2.2 % (0-7); HEMATOCRIT 33.7 % (36.0-48.0); HEMOGLOBIN 11.2 g/dL (12-16); IMMATURE GRANULOCYTES 0.3 % (0-5); MCH 28.6 pg (26.0-34.0); MCHC 33.2 g/dL (31.0-37.0); MONOCYTES 7.6 % (2-11); NEUTROPHILS 58.7 % (40-80); PLATELET COUNT 218 10x3/uL (130-400); RBC 3.92 10x6/uL (4.00-5.40); RDW 14.5 % (11.5-14.5)
[2019-08-07 06:52] LABS: WBC 6.4 10x3/uL (4.8-10.8)
[2019-08-07 07:12] LABS: ALBUMIN 2.8 g/dL (3.4-5.0); ANION GAP 13.1 mmol/L (8-16); BILIRUBIN - TOTAL 0.3 mg/dL (0.2-1.3); CALCIUM 8.4 mg/dL (8.5-10.1); CARBON DIOXIDE 26.5 mmol/L (21.0-32.0); CREATININE - SERUM 0.8 mg/dL (0.6-1.3); POTASSIUM - SERUM 3.6 mmol/L (3.5-5.1); PROTEIN - SERUM 6.4 g/dL (6.4-8.2)
--- NOTE | 2019-08-07 07:21 | NUR ---
PT RESTING IN BED WITH EYES OPEN, NO S/S OF DISTRESS AT THIS TIME. IV LOCATED TO LEFT FOREARM RUNNING NS AT KVO. BREATHING EVEN AND NONLABORED. DENIES ANY NEEDS AT THIS TIME, WILL CONT TO MONITOR.
[2019-08-07 08:11] VITALS: BP 136/68
--- NOTE | 2019-08-07 11:27 | NUR ---
INFORMED PT OF NEEDED URINE SAMPLE, GAVE CUP AND DIRECTIONS TO LET ME KNOW WHEN URINE HAS BEEN COLLECTED. DENIES NEEDS AT THIS TIME.
[2019-08-07 12:07] VITALS: Ht 157.5 cm; Wt 56.7 kg
[2019-08-07 12:15] VITALS: BP 131/90
--- NOTE | 2019-08-07 13:00 | NUR ---
URINE COLLECTED AND TAKEN TO LAB,
[2019-08-07 14:08] LABS: APPEARANCE CLEAR (CLEAR); BACTERIA FEW /hpf (NEGATIVE); BILIRUBIN NEGATIVE (NEGATIVE); COLOR YELLOW (YELLOW); EPITHELIAL CELLS OCC /hpf (0-5); GLUCOSE NEGATIVE (NEGATIVE); KETONE NEGATIVE (NEGATIVE); NITRITE NEGATIVE (NEGATIVE); PROTEIN NEGATIVE (NEGATIVE); RED CELLS - URINE 0-5 /hpf (0-5); UROBILINOGEN NORMAL (NORMAL); WHITE CELLS - URINE OCC /hpf (NEGATIVE)
--- NOTE | 2019-08-07 16:46 | NUR ---
PT SITTING UP IN BED WATCHING TV, DENIES ANY NEEDS AT THIS TIME. WILL CONT TO MONITOR.
[2019-08-07 17:21] VITALS: BP 112/58
[2019-08-07 20:34] VITALS: BP 133/74
[2019-08-08 01:07] VITALS: BP 137/33
--- NOTE | 2019-08-08 02:26 | NUR ---
1900)REC'D. IN BED SITTING POSITION WATCHING TV,DENIES SOB ON MINIMAL ACTIVITY NO RESP. DISTRESS OBSERVED. WILL CONTINUE TO MONITOR FOR ANY CHGES. AND FOLLOW CURRENT PLAN OF CARE
--- NOTE | 2019-08-08 03:33 | NUR ---
I have reviewed this patient and I concur with the Shift Assessment completed by the Licensed Practical Nurse today this shift.
[2019-08-08 04:52] VITALS: BP 124/64
[2019-08-08 06:02] LABS: BASOPHILS 0.1 % (0-2); HEMATOCRIT 37.1 % (36.0-48.0); HEMOGLOBIN 12.6 g/dL (12-16); IMMATURE GRANULOCYTES 0.5 % (0-5); LYMPHOCYTES 34.6 % (15-50); MCV 85.3 fL (80.0-100.0); MEAN PLATELET VOLUME 9.5 fL (7.4-10.4); MONOCYTES 8.3 % (2-11); NEUTROPHILS 54.5 % (40-80); PLATELET COUNT 252 10x3/uL (130-400); RBC 4.35 10x6/uL (4.00-5.40); RDW 14.3 % (11.5-14.5); WBC 7.6 10x3/uL (4.8-10.8)
[2019-08-08 06:36] LABS: ALKALINE PHOSPHATASE 281 U/L (46-116); ALT (SGPT) 345 U/L (10-68); BILIRUBIN - TOTAL 0.38 mg/dL (0.2-1.3); CALC OSMOLALITY 284 mosm/kg (275-300); CALCIUM 8.7 mg/dL (8.5-10.1); CARBON DIOXIDE 29.5 mmol/L (21.0-32.0); CHLORIDE - SERUM 105 mmol/L (98-107); CREATININE - SERUM 0.7 mg/dL (0.6-1.3); GLUCOSE 92 mg/dL (74-106); POTASSIUM - SERUM 3.4 mmol/L (3.5-5.1); PROTEIN - SERUM 6.9 g/dL (6.4-8.2); SODIUM 143 mmol/L (136-145); UREA NITROGEN 13 mg/dL (7-18); eGFR NON AFRICAN AMERICAN 87 mL/min (90-120)
--- NOTE | 2019-08-08 07:55 | NUR ---
PT RESTING IN BED WITH EYES OPEN WATCHING TV, NO S/S OF DISTRESS. IV LOCATED TO LEFT FOREARM RUNNING NS @ KVO. ALERT AND ORIENTED, DENIES ANY NEEDS AT THIS TIME, WILL CONT TO MONITOR.
[2019-08-08 08:11] LABS: HEPATITIS C ANTIBODY <0.1 S/CO RAT (0.0-0.9)
[2019-08-08 08:33] VITALS: BP 124/67
[2019-08-08] MEDS ORDERED: TESSALON PERLE100 MG PO (09:34)
[2019-08-08] MEDS ORDERED: SINGULAIR10 MG PO (09:34)
[2019-08-08] MEDS ORDERED: FLUTICASONE PRO16 GM NASAL (09:34)
[2019-08-08] MEDS ORDERED: MUCINEX DM ER1 EAC1 PO (09:34)
[2019-08-08] MEDS ORDERED: CLEOCIN HCL300 MG PO (09:35)
[2019-08-08] MEDS ORDERED: LEVOFLOXACIN500 MG PO (09:36)
[2019-08-08] MEDS ORDERED: ALBUTEROL SULF8.5 GM INH (09:36)
--- NOTE | 2019-08-08 11:49 | MORECARE ---
CASE MANAGEMENT DISCHARGE SUMMARY PATIENT: CAT ROSARIO UNIT: [id number] ADM DATE: 08/05/19 AGE: 74 : 45 SEX: F ROOM/BED: D.220 AUTHOR: RAJI,DOC PHYSICIAN: REFERRING PHYSICIAN: TONY WALLS MD DATE OF SERVICE: 08/08/19 Discharge Plan Patient Name: CAT ROSARIO Facility: [facility]:[place] : 1945 Planned Disposition: Home Anticipated Discharge Date: Discharge Date: Expected LOS: Initial Reviewer: [id number] Initial Review Date: 08/05/2019 Generated: 08/08/19 12:48 pm Comments DCP- Discharge Planning Updated by [id number]: Ayala Flowers on 08/08/19 10:[address] Patient discharging home today, denies any needs and does not want home health. IMM served and explained. Copy given and also placed in chart. Cm to follow and assist as needed DCP- Discharge Planning Updated by [id number]: Keila Reyes on 08/06/19 3:[address] CM INTRODUCED HERSELF TO THE PATIENT. EXPLAINED I HAD RECEIVED A CASE MANAGEMENT CONSULT. EXPLAINED MY ROLE. PATIENT GAVE PERMISSION FOR THE INTERVIEW. SHE QUICKLY STATES "I DON'T KNOW MY NEEDS BECAUSE I DON'T KNOW MY DIAGNOSIS". SHE DOES NOT FEEL SHE HAS ANY NEEDS AT PRESENT BUT IS NOT CERTAIN. HER HUSAND IS IN A WHEELCHAIR FROM "A SURGERY GONE BAD". SHE ASSIST HIM IN HIS CARE. SHE HAS A DAUGHTER WHO LIVES NEAR. THE DAUGHTER WILL LIKELY PROVIDE TRANSPORTATION WHEN SHE IS DISCHARGED. SHE DOES NOT UTILZE ANY HOME HEALTH OR COMMUNITY SERVICES. HER HAS HAD [facility] RECENTLY. THERE ARE 7 STEPS W/ RAILING TO ENTER HER HOME HOWEVERE SHE ALSO HAS A RAMP. DR ANA ROSA DAVIDSON IN [place] IS HER PRIMARY MD. SHE WOULD LIKE INFORMATION FAXED TO HIS OFFICE AT DISCHARGE. SHE UTILIZES [employer] IN [place]. CM ADVISED THAT CASE MANGEMENT IS AVAILABLE TO ASSIST W/ DISCHARGE NEEDS WHEN SHE KNOWS HER DIAGNOSIS AND NEEDS. WILL FOLLOW TO ASSIST. DCPIA - Discharge Planning Initial Assessment Updated by [id number]: Kiela Reyes on 08/06/19 4:32 pm * Is the patient Alert and Oriented? Yes * How many steps to enter\\exit or inside your home? 7 steps w/ * PCP DR ANA ROSA [place]ERR[place]. [place] * Pharmacy [facility] * Preadmission Environment Home with Family * ADLs Independent * Equipment None * Other Equipment N/A * List name and contact numbers for known caregivers / representatives who currently or will assist patient after discharge: TONY ROSARIO- [facility]- [phone] * Community resources currently utilized None * Please name any agencies selected above. NONE * Additional services required to return to the preadmission environment? No * Can the patient safely return to the preadmission environment? Yes * Has this patient been hospitalized within the prior 30 days at any hospital? No Coverage Notice Reviewer: [email or web address] Merrill Flowers Notice Issued Date-Time: 08/08/2019 11:40 Notice Type: IM Discharge Notice Notice Delivered To: Patient Relationship to Patient: Senior Physician Name: Delivery Method: HAND - Hand Delivered Leah Days: Prior Verbal Notification: Recipient Understood Notice: Yes Recipient Signature: Yes Med Rec Note Co-signed by Attending: Coverage Notice Comment: Last DP export: 08/06/19 3:48 p Patient Name: CAT ROSARIO Page [id number] at 1149 All edits/amendments must be made on the electronic document DICTATION DATE: 08/08/198 REPRODUCTION MACHINE LOADER: FRANK 08/08/19 1148 RPT#: [id number] DC DATE: STATUS: ADM IN [facility] [address] [place] [address] END OF REPORT
[2019-08-08 13:30] VITALS: BP 146/74
[2019-08-08 16:09] LABS: ACID FAST SMEAR Negative (()); AFB SPECIMEN PROCESSING Concentration (())
--- NOTE | 2019-08-09 10:01 | MORECARE ---
CASE MANAGEMENT DISCHARGE SUMMARY PATIENT: CAT ROSARIO UNIT: [id number] ADM DATE: 08/05/19 AGE: 74 : 45 SEX: F ROOM/BED: D.2208 AUTHOR: RAJI,DOC PHYSICIAN: REFERRING PHYSICIAN: TONY WALLS MD DATE OF SERVICE: 08/09/19 Discharge Plan Patient Name: CAT ROSARIO Facility: [facility]:[place] : 1945 Planned Disposition: Home Anticipated Discharge Date: Discharge Date: 08/08/2019 Expected LOS: 0 Initial Reviewer: [email or web address] Initial Review Date: 08/05/2019 Generated: 08/09/19 11:01 am Comments DCP- Discharge Planning Updated by [email or web address]: Ayala Flowers on 08/08/19 10:[address] Patient discharging home today, denies any needs and does not want home health. IMM served and explained. Copy given and also placed in chart. Cm to follow and assist as needed DCP- Discharge Planning Updated by [id number]: Keila Reyes on 08/06/19 3:[address] CM INTRODUCED HERSELF TO THE PATIENT. EXPLAINED I HAD RECEIVED A CASE MANAGEMENT CONSULT. EXPLAINED MY ROLE. PATIENT GAVE PERMISSION FOR THE INTERVIEW. SHE QUICKLY STATES "I DON'T KNOW MY NEEDS BECAUSE I DON'T KNOW MY DIAGNOSIS". SHE DOES NOT FEEL SHE HAS ANY NEEDS AT PRESENT BUT IS NOT CERTAIN. HER HUSAND IS IN A WHEELCHAIR FROM "A SURGERY GONE BAD". SHE ASSIST HIM IN HIS CARE. SHE HAS A DAUGHTER WHO LIVES NEAR. THE DAUGHTER WILL LIKELY PROVIDE TRANSPORTATION WHEN SHE IS DISCHARGED. SHE DOES NOT UTILZE ANY HOME HEALTH OR COMMUNITY SERVICES. HER HAS HAD [facility] RECENTLY. THERE ARE 7 STEPS W/ RAILING TO ENTER HER HOME HOWEVERE SHE ALSO HAS A RAMP. DR ANA ROSA DAVIDSON IN [place] IS HER PRIMARY MD. SHE WOULD LIKE INFORMATION FAXED TO HIS OFFICE AT DISCHARGE. SHE UTILIZES [employer] IN [place]. CM ADVISED THAT CASE MANGEMENT IS AVAILABLE TO ASSIST W/ DISCHARGE NEEDS WHEN SHE KNOWS HER DIAGNOSIS AND NEEDS. WILL FOLLOW TO ASSIST. DCPIA - Discharge Planning Initial Assessment Updated by [id number]: Keila Reyes on 08/06/19 4:32 pm * Is the patient Alert and Oriented? Yes * How many steps to enter\\exit or inside your home? 7 steps w/ * PCP DR ANA ROSA [place]ERR[place]. [place] * Pharmacy [facility] * Preadmission Environment Home with Family * ADLs Independent * Equipment None * Other Equipment N/A * List name and contact numbers for known caregivers / representatives who currently or will assist patient after discharge: TONY ROSARIO- [facility]- [phone] * Community resources currently utilized None * Please name any agencies selected above. NONE * Additional services required to return to the preadmission environment? No * Can the patient safely return to the preadmission environment? Yes * Has this patient been hospitalized within the prior 30 days at any hospital? No Coverage Notice Reviewer: [id number] Merrill Flowers Notice Issued Date-Time: 08/08/2019 11:40 Notice Type: IM Discharge Notice Notice Delivered To: Patient Relationship to Patient: Foxing Closer Name: Delivery Method: HAND - Hand Delivered Leah Days: Prior Verbal Notification: Recipient Understood Notice: Yes Recipient Signature: Yes Med Rec Note Co-signed by Attending: Coverage Notice Comment: Last DP export: 08/08/19 10:49 a Patient Name: CAT ROSARIO Page [phone] at 1001 All edits/amendments must be made on the electronic document DICTATION DATE: 08/09/19 1001 TYPE SOLDERING MACHINE TENDER: FRANK 08/09/19 1001 RPT#: [id number] DC DATE:08/08/19 STATUS: DIS IN [facility] [address] [place] [address] END OF REPORT
[2019-08-11 19:08] LABS: FUNGAL - ASP FLAVUS Negative (Neg:<1:1); FUNGAL - ASP NIGER Negative (Neg:<1:1); FUNGAL - ASPER FUMIGATUS Negative (Neg:<1:1)
== END 2019-08-08 14:28 | disposition home or self-care (01) | DRG 179 ==
LOC: D.ER 20:47 → D.MS 08-05 01:32
PROVIDERS: Family Medicine; Internal Medicine Cardiovascular Disease; Internal Medicine Nephrology; Internal Medicine Pulmonary Disease; ADMIT Emergency Medicine; ATTEND Emergency Medicine
DX: J69.0 Pneumonitis due to inhalation of food and vomit (principal); K75.9 Inflammatory liver disease, unspecified; E87.6 Hypokalemia; M54.9 Dorsalgia, unspecified; K59.09 Other constipation; F41.8 Other specified anxiety disorders; E78.5 Hyperlipidemia, unspecified; I10 Essential (primary) hypertension; K21.9 Gastro-esophageal reflux disease without esophagitis; E04.1 Nontoxic single thyroid nodule; N28.1 Cyst of kidney, acquired; J43.9 Emphysema, unspecified; R59.0 Localized enlarged lymph nodes; I25.10 Atherosclerotic heart disease of native coronary artery without angina pectoris; D64.9 Anemia, unspecified; I71.4 Abdominal aortic aneurysm, without rupture

== ENCOUNTER → 2019-11-23 13:02 | Outpatient (CLI) | payer MEDICARE, BC ==
[2019-08-07 12:07] VITALS: BMI 22.8
[~2019-11-23 13:02] MED LIST changes: +ALBUTEROL SULF8.5 GM INH; +BACLOFEN10 MG; +CLEOCIN HCL300 MG PO; +FLUTICASONE PRO16 GM NASAL; +LEVOFLOXACIN500 MG PO; +MUCINEX DM ER1 EAC1 PO; +SINGULAIR10 MG PO; +TESSALON PERLE100 MG PO
== END | disposition home or self-care (01) ==
LOC: D.RT 13:00
PROVIDERS: ATTEND Internal Medicine Pulmonary Disease
DX: R07.9 Chest pain, unspecified (principal); I71.4 Abdominal aortic aneurysm, without rupture; J44.9 Chronic obstructive pulmonary disease, unspecified; J84.10 Pulmonary fibrosis, unspecified; M54.9 Dorsalgia, unspecified; K75.9 Inflammatory liver disease, unspecified; I20.9 Angina pectoris, unspecified; K59.09 Other constipation; F32.9 Major depressive disorder, single episode, unspecified; I10 Essential (primary) hypertension; K21.9 Gastro-esophageal reflux disease without esophagitis

== ENCOUNTER → 2020-01-04 09:35 | Outpatient (CLI) | payer MEDICARE, BC ==
[2019-08-07 12:07] VITALS: BMI 22.8
== END | disposition home or self-care (01) ==
LOC: D.CT 09:35
PROVIDERS: ATTEND Internal Medicine Cardiovascular Disease
DX: I71.4 Abdominal aortic aneurysm, without rupture (principal); R59.0 Localized enlarged lymph nodes

== ENCOUNTER 2020-04-22 12:22 | Day surgery (SDC) | payer MEDICARE, BC ==
[~2020-04-22] VITALS: Ht 157.5 cm; Wt 63.6 kg
[2020-04-22 12:55] LABS: BASOPHILS 0.2 % (0-2); EOSINOPHILS 0.3 % (0-7); HEMATOCRIT 39.9 % (36.0-48.0); HEMOGLOBIN 12.9 g/dL (12-16); IMMATURE GRANULOCYTES 0.2 % (0-5); MCH 29.4 pg (26.0-34.0); MCHC 32.3 g/dL (31.0-37.0); MCV 90.9 fL (80.0-100.0); MEAN PLATELET VOLUME 9.5 fL (7.4-10.4); MONOCYTES 7.4 % (2-11); NEUTROPHILS 57.9 % (40-80); PLATELET COUNT 215 10x3/uL (130-400); RBC 4.39 10x6/uL (4.00-5.40); WBC 6.3 10x3/uL (4.8-10.8)
[2020-04-22 13:26] VITALS: Ht 157.5 cm; Wt 63.6 kg
--- NOTE | 2020-04-23 07:12 | OP ---
PATIENT NAME: CAT ROSARIO MEDICAL RECORD: [id number] :[birth year] [facility] DATE: SURGEON: SEFERINO PATEL DO DATE OF OPERATION: 04/22/2020 PROCEDURE: Colonoscopy with polypectomy and biopsies. INDICATIONS FOR PROCEDURE: Chronic constipation, left lower quadrant abdominal pain. SCOPE: WeatherBug video pediatric colonoscope. MEDICATIONS: Propofol 650 mg IV per anesthesia. WITHDRAWAL TIME: 40 minutes. ESTIMATED BLOOD LOSS: Minimal. COMPLICATIONS: None. FINDINGS: Informed consent was given. The patient was made comfortable with the above medication. After reaching an adequate level of sedation by slow IV push, the patient was placed on her left side. A digital rectal examination was performed it and was normal. The endoscope was advanced under direct visualization through the rectum to the cecum, confirmed by the presence of the appendiceal orifice and ileocecal valve. The endoscope was slowly withdrawn and mucosa was carefully examined. Prep quality was poor. There were a few polyps visualized on today's examination. The first was located just distal to the ileocecal valve. This site looked like multiple polyps of varying size and shape in close proximity to one another to make it appears as if it were 1 polyp. The total size was approximately 1.5 cm x 8 mm. An attempt was made at an endoscopic mucosal resection technique using normal saline. The polyps were so flat that the snare could not grab the tissue, so a hot forceps was used to remove as much of the tissue as possible utilizing cautery and some biopsies were taken as well. What remaining tissue could be seen was cauterized using a snare tip. In the ascending colon, there were two separate benign-appearing polyps. One was a sessile polyp, which measured approximately 3 mm in diameter. It was removed using hot forceps. The other was a flat polyp, which measured approximately 8 mm x 3 mm in size. It was removed in a piecemeal fashion using hot forceps. There were a few small mouth diverticula located in the descending and sigmoid colon. Retroflexion was performed in the rectum with a normal appearing rectal wall. The endoscope was withdrawn from the patient. The patient tolerated the procedure well and there were no complications. IMPRESSION: 1. Few polyps as described above removed using a combination of cold biopsy forceps, hot forceps, and snare cautery. 2. Mild diverticulosis of the descending and sigmoid colon. PLAN AND RECOMMENDATIONS: 1. Discharge home when recovery parameters are met. 2. Follow up biopsy specimen results. 3. High fiber diet. 4. Continue current medications. 5. I discussed multiple therapies with the patient for her constipation. She OPERATIVE REPORT [id number] CAT ROSARIO has tried everything up to Linzess and Amitiza with little benefit. We discussed trying to use milk of magnesia to see if this will help. I also discussed with her that we could give a trial of lactulose, but this can be discussed in followup in the clinic setting. 6. Recall colonoscopy in 2 years. TRANSINT:[id number] Voice Confirmation ID: [id number] DOCUMENT ID: [id number] SEFERINO PATEL DO at 0712 CC: [id number] DICTATION DATE: 04/22/20 1513 [employer]AF[employer] DE[employer]IT [employer]OXES CUSTODIAN: 04/23/20 0201 [facility] 04/22/20 [id number] [place] [address]
== END 2020-04-22 15:58 | disposition home or self-care (01) ==
LOC: D.OPS 12:22
PROVIDERS: Anesthesiology; ATTEND Internal Medicine Gastroenterology
DX: K59.09 Other constipation (principal); R10.32 Left lower quadrant pain; K63.5 Polyp of colon; R13.10 Dysphagia, unspecified; R12 Heartburn; R11.2 Nausea with vomiting, unspecified

== ENCOUNTER 2020-04-29 10:01 | Day surgery (SDC) | payer MEDICARE, BC ==
[~2020-04-29] VITALS: Ht 157.5 cm; Wt 63.6 kg
[2020-04-29 10:21] LABS: HEMATOCRIT 39.2 % (36.0-48.0); HEMOGLOBIN 12.6 g/dL (12-16); MCH 29.4 pg (26.0-34.0); MCHC 32.1 g/dL (31.0-37.0); MCV 91.6 fL (80.0-100.0); MEAN PLATELET VOLUME 9.6 fL (7.4-10.4); RBC 4.28 10x6/uL (4.00-5.40); RDW 13.8 % (11.5-14.5); WBC 5.8 10x3/uL (4.8-10.8)
[2020-04-29 11:18] VITALS: Ht 157.5 cm; Wt 63.6 kg
[2020-04-29] MEDS ORDERED: PEPCID AC20 MG PO (11:25)
[2020-04-29] MEDS ORDERED: BACLOFEN10 MG PO (11:26)
--- NOTE | 2020-04-29 14:22 | NUR ---
1335 IV DC'D. CATHETER TIP INTACT. NO BLEEDING AT SITE. BANDAID APPLIED. 1350 PT IS DRESSED. DISCHARGE INSTRUCTIONS REVIEWED WITH PT WHO VOISES UNDERSTANDING OF INSTRUCTIONS.
--- NOTE | 2020-04-30 07:11 | OP ---
PATIENT NAME: CAT ROSARIO MEDICAL RECORD: [id number] :[birth year] [facility] DATE: SURGEON: SEFERINO PATEL DO DATE OF OPERATION: 04/29/2020 PROCEDURE: EGD with biopsies and balloon dilation. INDICATIONS FOR PROCEDURE: Dysphagia, heartburn, nausea and vomiting. SCOPE: Olympus video gastroscope. MEDICATIONS: Propofol 150 mg IV per anesthesia. ESTIMATED BLOOD LOSS: Minimal. COMPLICATIONS: None. FINDINGS: Informed consent was given. The patient was made comfortable with the above medication. After reaching an adequate level of sedation by slow IV push, the patient was placed on her left side. The endoscope was advanced under direct visualization through the mouth to the second portion of the duodenum with ease. The entire esophagus appeared normal down to the GE junction. Cold forceps, biopsies were taken from the mid esophagus to rule out the presence of eosinophils. At the GE junction, there were minor changes consistent with LA class A reflux-induced esophagitis. There was also possible Adams mucosa. Cold forceps, biopsies were taken from the GE junction to submit for histopathology. The endoscope was advanced beyond the GE junction into the stomach and retroflexed to view the cardia and fundus, which appeared normal. The body of the stomach as well as the antrum and prepyloric regions all appeared normal as well. Cold forceps, biopsies were taken from the antrum and incisura to submit for histopathology and to rule out the presence of H. pylori. The endoscope was advanced beyond the pylorus into the duodenum, which appeared normal to the second portion. Random cold forceps biopsies were taken to submit for histopathology. The endoscope was withdrawn from the patient. The patient tolerated the procedure well and there were no complications. IMPRESSION: 1. Mild esophageal stenosis located at the GE junction, status post balloon dilation with a CRE balloon to 20 mm maximum diameter. 2. LA class A reflux-induced esophagitis. PLAN AND RECOMMENDATIONS: 1. Discharge home when recovery parameters are met. 2. Follow up biopsy specimen results. 3. GERD diet and reflux precautions. 4. Continue current medications, but change Pepcid dosing to once daily in the evening. 5. Add omeprazole 40 mg q.a.m. 6. Right upper quadrant ultrasound regarding the ongoing nausea and vomiting. 7. If the ultrasound is normal, consider PIPIDA scan and possibly gastric emptying scan if symptoms of gastroparesis. 8. Follow up in GI clinic in 4-6 weeks. 9. If dysphagia persists, can consider manometry study. TRANSINT:[id number] Voice Confirmation ID: [id number] DOCUMENT ID: [id number] OPERATIVE REPORT [id number] CAT ROSARIO,SEFERINO Castro DO at 0711 CC: [id number] DICTATION DATE: 04/29/20 1258 TELEVISION NEWS REPORTER: 04/29/202201 [facility] [place] 04/29/[address] [address]
== END 2020-04-29 14:02 | disposition home or self-care (01) ==
LOC: D.OPS 10:01
PROVIDERS: Anesthesiology; ATTEND Internal Medicine Gastroenterology
DX: R13.10 Dysphagia, unspecified (principal); R12 Heartburn; R11.2 Nausea with vomiting, unspecified; K22.2 Esophageal obstruction; K21.0 Gastro-esophageal reflux disease with esophagitis; K59.09 Other constipation; R10.31 Right lower quadrant pain

== ENCOUNTER → 2020-05-01 09:22 | Outpatient (CLI) | payer MEDICARE, BC ==
[2020-04-29 11:18] VITALS: BMI 25.6
[~2020-05-01 09:22] MED LIST changes: +BACLOFEN10 MG PO; +PEPCID AC20 MG PO
== END | disposition home or self-care (01) ==
LOC: D.US 09:22
PROVIDERS: ATTEND Internal Medicine Gastroenterology
DX: R11.2 Nausea with vomiting, unspecified (principal); R13.10 Dysphagia, unspecified; R12 Heartburn

== ENCOUNTER 2020-06-11 08:00 | Outpatient (CLI) | payer MEDICARE, BC ==
[2020-04-29 11:18] VITALS: BMI 25.6
== END 2020-06-11 08:01 | disposition home or self-care (01) ==
LOC: D.CT 08:00
PROVIDERS: ATTEND Internal Medicine Cardiovascular Disease
DX: I71.4 Abdominal aortic aneurysm, without rupture (principal)

== ENCOUNTER → 2020-07-12 10:29 | Outpatient (CLI) | payer MEDICARE, BC ==
[2020-04-29 11:18] VITALS: BMI 25.6
== END | disposition home or self-care (01) ==
LOC: D.NM 10:29
PROVIDERS: ATTEND Internal Medicine Gastroenterology
DX: R11.2 Nausea with vomiting, unspecified (principal); R12 Heartburn

== ENCOUNTER → 2020-07-17 09:10 | Outpatient (CLI) | payer MEDICARE, BC ==
[2020-04-29 11:18] VITALS: BMI 25.6
== END | disposition home or self-care (01) ==
LOC: D.NM 09:10
PROVIDERS: ATTEND Internal Medicine Gastroenterology
DX: R11.2 Nausea with vomiting, unspecified (principal); R12 Heartburn

== ENCOUNTER → 2020-08-19 06:47 | Outpatient (CLI) | payer MEDICARE, BC ==
[2020-04-29 11:18] VITALS: BMI 25.6
== END | disposition home or self-care (01) ==
LOC: D.RAD 06:47
PROVIDERS: ATTEND Internal Medicine Gastroenterology
DX: R13.10 Dysphagia, unspecified (principal)

== ENCOUNTER 2020-08-21 07:21 | Outpatient (CLI) | payer MEDICARE, BC ==
[2020-04-29 11:18] VITALS: BMI 25.6
== END 2020-08-21 08:35 ==
LOC: D.OPS 07:21
PROVIDERS: ATTEND Internal Medicine Gastroenterology
DX: R13.10 Dysphagia, unspecified (principal); R11.2 Nausea with vomiting, unspecified

== ENCOUNTER → 2021-02-03 13:11 | Outpatient (CLI) | payer MEDICARE, BC ==
[2020-04-29 11:18] VITALS: BMI 25.6
== END | disposition home or self-care (01) ==
LOC: D.CT 13:00
PROVIDERS: ATTEND Thoracic Surgery (Cardiothoracic Vascular Surgery)
DX: I71.4 Abdominal aortic aneurysm, without rupture (principal)